=== PATIENT | male | born 1945 | race Caucasian/White ===

== ENCOUNTER 2016-02-19 18:31 | Inpatient (IN) | payer OTHER ==
[~2016-02-19] VITALS: Ht 177.8 cm; Wt 89.8 kg
--- NOTE | ~2016-02-19 | HC ---
[facility] [place] [address] CONSULTATION Name: WATTSMEGHA EVELINE Room #: 439-P [facility] IN M.R.#: [id number] Admission: 02/19/16 Attend Phys: Jacinto Marlow Discharge: 02/22/16 Date of : 43 Report #: [id number] THIS REPORT FOR: //name// CC: LIZA physician/PCP Jacinto SEO PCP DATE OF SERVICE: 02/20/2016 REASON FOR CONSULTATION: Urinary retention. HISTORY OF PRESENT ILLNESS: The patient is a 70-year-old gentleman who is known to me. He has urinary retention with an obstruction uropathy and in January, specifically 02/01/2016, underwent cystoscopy, transurethral resection of the prostate. The patient is currently admitted with complaints of obstipation and severe rectal pain. During an emergency presentation, a Bledsoe catheter was placed and there was a concern for possible urinary tract infection. The patient having expected microhematuria and pyuria following prostate resection surgery. By history, the patient states there was a small amount of urine residual within the bladder. He states prior to admission, he was not having any undue difficulties voiding. PAST MEDICAL HISTORY: Pertinent for hypertension, BPH, bipolar disorder. PAST SURGICAL HISTORY: Includes prostate resection. FAMILY HISTORY: Positive for coronary artery disease, lupus. SOCIAL HISTORY: The patient continues to be a smoker, does not use alcohol or recreational drugs. ALLERGIES: None known. PHYSICAL EXAMINATION: The patient is currently in no acute distress. His abdomen is soft, without bladder distention. Bledsoe catheter is indwelling. His urine is visibly clear. I deferred rectal examination given recent prostate surgery. LABORATORY DATA: The patient's creatinine is 1.2, BUN is 23. Electrolytes are normal, glucose is elevated to 225, white blood count is 14.3, hemoglobin and hematocrit are 11.1 and 33. MICROBIOLOGY DATA: The patient has had a urine culture submitted yesterday, it is pending blood cultures likewise. OTHER LABORATORY DATA: Urinalysis: Specific gravity is 1.020, pH is 6.5, [facility] [address] [place] [address] CONSULTATION Name: WATTSMEGHA EVELINE Room #: 439-P [facility] IN M.R.#: [id number] Admission: 02/19/16 Attend Phys: Jacinto Marlow Discharge: 02/22/16 Date of : 43 Report #: [id number] positive nitrites. There were greater than 20 red cells, 6-15 white cells. IMPRESSION: 1. Obstipation with abdominal rectal pain. 2. History of urinary retention, obstructive uropathy post prostate resection. DISCUSSION: I do not think the patient has urosepsis. Urine cultures are pending and the patient has been started on broad-spectrum antibiotics. We will remove the Bledsoe catheter tomorrow and assess postvoid residuals. I will follow during the hospital course for problems. Thank you for allowing me to see the patient in consultation. <ELECTRONICALLY SIGNED> By: Rj Copeland MD 02/22/16 1417 1354 1705 Rj Copeland MD /nt
[~2016-02-19 18:31] MED LIST: ATENOLOL 25MG T25 M1 PO; CIPRO500 MG PO; DEPAKOTE 250MG250 M1 PO; IBUPROFEN 800800 M1 PO; KEFLEX500 MG PO; LISINOPRIL20 MG PO; QUETIAPINE FUMA50 M1 PO; TRAMADOL 50 MG50 MG PO; UNK BP MED; ZANTAC 150MG T150 M1 PO; ZOCOR20 MG PO
[2016-02-19 18:33] VITALS: BP 105/58
[2016-02-19 19:58] LABS: HEMATOCRIT 43.1 % (42.0-52.0); HEMOGLOBIN 14.2 gm/dL (14.0-18.0); MCH 31.8 pg (26.0-34.0); MCHC 32.8 % (28.0-37.0); MCV 96.9 fL (80.0-100.0); PLATELET COUNT 243 thou/uL (150-400); RBC 4.45 mil/uL (4.50-6.00); WBC 23.2 thou/uL (4.0-11.0)
[2016-02-19 20:01] LABS: MANUAL DIFF YES
[2016-02-19 20:07] LABS: CALCIUM 9.6 mg/dL (8.5-10.1); CREATININE 1.6 mg/dL (0.6-1.3); POTASSIUM 4.1 mmol/L (3.5-5.1)
[2016-02-19 20:11] LABS: TOTAL BILIRUBIN 0.9 mg/dL (<0.1-1.0); TOTAL PROTEIN 7.9 g/dL (6.4-8.2)
[2016-02-19 20:32] LABS: TOTAL CELL COUNT 100
[2016-02-19 21:59] LABS: URINE BILIRUBIN 1+ (Negative); URINE BLOOD 3+ (Negative); URINE COLOR YELLOW; URINE GLUCOSE-RANDOM* NEGATIVE (Negative); URINE KETONES TRACE (Negative); URINE NITRITE POSITIVE (Negative); URINE PROTEIN (DIPSTICK) 2+ (Negative)
[2016-02-19 22:09] LABS: ICTOTEST (BILI CONFIRMATORY) Positive (Negative)
[2016-02-19 22:10] LABS: SQUAMOUS 0-3 Few /LPF (0-3)
[2016-02-19 22:11] LABS: CASTS None Seen /LPF (None Seen)
[2016-02-19 22:16] LABS: BACTERIA 1-9 Few /HPF (None Seen); CRYSTALS None Seen /LPF (None Seen); URINE RBC >20 Many /HPF (0-2); URINE WBC 6-15 Few /HPF (0-5)
[2016-02-19 23:24] VITALS: BP 112/51
[2016-02-19 23:50] VITALS: BP 130/57
[2016-02-20] VITALS (8 sets, daily range): BP systolic 90–141; BP diastolic 39–81
[2016-02-20 05:27] LABS: HEMATOCRIT 32.8 % (42.0-52.0); MCH 32.3 pg (26.0-34.0); MCHC 33.9 % (28.0-37.0); MCV 95.1 fL (80.0-100.0); RBC 3.45 mil/uL (4.50-6.00); RDW 12.8 % (10.5-14.5); WBC 14.3 thou/uL (4.0-11.0)
[2016-02-20 05:56] LABS: ALBUMIN 2.1 g/dL (3.4-5.0); CALCIUM 8.3 mg/dL (8.5-10.1); CREATININE 1.2 mg/dL (0.6-1.3); POTASSIUM 3.8 mmol/L (3.5-5.1); TOTAL BILIRUBIN 0.6 mg/dL (<0.1-1.0)
[2016-02-20 06:20] LABS: HEMOGLOBIN 11.1 gm/dL (14.0-18.0)
[2016-02-20 06:34] LABS: TOTAL PROTEIN 5.7 g/dL (6.4-8.2)
[2016-02-21 05:04] VITALS: BP 120/50
[2016-02-21 06:23] LABS: ABSOLUTE NEUTROPHILS 9.2 thou/uL (1.4-8.2); BASOPHILS 0.5 % (0.0-2.0); EOSINOPHILS 0.2 % (0.0-3.0); HEMATOCRIT 34.9 % (42.0-52.0); HEMOGLOBIN 11.5 gm/dL (14.0-18.0); LYMPHOCYTES 16.8 % (24.0-44.0); MANUAL DIFF NO; MCH 31.8 pg (26.0-34.0); MCHC 32.8 % (28.0-37.0); MCV 96.8 fL (80.0-100.0); PLATELET COUNT 207 thou/uL (150-400); POLYS 72.5 % (36.0-66.0); RBC 3.61 mil/uL (4.50-6.00); RDW 13.1 % (10.5-14.5); WBC 12.7 thou/uL (4.0-11.0)
[2016-02-21 06:45] LABS: CALCIUM 8.1 mg/dL (8.5-10.1); PHOSPHORUS 2.9 mg/dL (2.5-4.9); POTASSIUM 4.1 mmol/L (3.5-5.1)
[2016-02-21 08:00] VITALS: BP 119/51
[2016-02-21 12:00] VITALS: BP 117/48
[2016-02-21 16:00] VITALS: BP 116/56
[2016-02-21 20:50] VITALS: BP 120/55
[2016-02-22 04:03] VITALS: BP 135/64
[2016-02-22 06:13] LABS: HEMATOCRIT 35.2 % (42.0-52.0); MCH 32.2 pg (26.0-34.0); MCHC 34.1 % (28.0-37.0); MCV 94.5 fL (80.0-100.0); RBC 3.73 mil/uL (4.50-6.00); RDW 12.7 % (10.5-14.5); WBC 10.1 thou/uL (4.0-11.0)
[2016-02-22 06:32] LABS: CALCIUM 8.3 mg/dL (8.5-10.1); CREATININE 0.9 mg/dL (0.6-1.3); PHOSPHORUS 3.4 mg/dL (2.5-4.9); POTASSIUM 3.9 mmol/L (3.5-5.1)
[2016-02-22 08:46] VITALS: BP 131/56
[2016-02-22] MEDS ORDERED: AUGMENTIN 875875 MG PO (10:46)
[2016-02-22] MEDS ORDERED: SENOKOT-S1 TA1 PO (10:47)
[2016-02-22 10:56] VITALS: BP 131/56
[2016-02-22 11:53] VITALS: BP 125/55
[2016-02-22 12:43] VITALS: BP 131/56
[2016-03-02] MEDS ORDERED: ZANTAC 150MG T150 MG PO (22:48)
[2016-03-09] MEDS ORDERED: COLACE 100 MG100 MG PO (07:25)
[2016-03-09] MEDS ORDERED: MIRALAX17 GM PO (07:25)
[2016-03-09] MEDS ORDERED: MILK OF MA2400 MG/10 PO (07:25)
[2016-03-29] MEDS ORDERED: AUGMENTIN 875875 MG PO (12:22)
[2016-03-29] MEDS ORDERED: HYDROCODON-ACE1 EAC7 PO (12:22)
[2016-04-11] MEDS ORDERED: COLACE100 MG PO (19:42)
[2016-04-13] MEDS ORDERED: DUONEB 2.5-0.5 M3 ML INH (12:29)
[2016-04-13] MEDS ORDERED: HYDROCODON-ACE1 EAC7 PO (12:30)
== END 2016-02-22 13:45 | disposition home health service (06) | DRG 871 ==
LOC: ER 18:31 → EROBS 22:56 → 4S 22:56
PROVIDERS: Hospitalist; Nurse Practitioner; Physician Assistant
DX: A41.9 Sepsis, unspecified organism (principal); N17.0 Acute kidney failure with tubular necrosis; N39.0 Urinary tract infection, site not specified; E44.1 Mild protein-calorie malnutrition; N13.9 Obstructive and reflux uropathy, unspecified; N40.1 Benign prostatic hyperplasia with lower urinary tract symptoms; F17.210 Nicotine dependence, cigarettes, uncomplicated; R74.0 Nonspecific elevation of levels of transaminase and lactic acid dehydrogenase [LDH]; R33.9 Retention of urine, unspecified; F31.9 Bipolar disorder, unspecified; E78.00 Pure hypercholesterolemia, unspecified; K21.9 Gastro-esophageal reflux disease without esophagitis; M47.9 Spondylosis, unspecified; K08.409 Partial loss of teeth, unspecified cause, unspecified class; N18.9 Chronic kidney disease, unspecified; I12.9 Hypertensive chronic kidney disease with stage 1 through stage 4 chronic kidney disease, or unspecified chronic kidney disease; K59.00 Constipation, unspecified; Z84.89 Family history of other specified conditions; Z79.899 Other long term (current) drug therapy; Z82.49 Family history of ischemic heart disease and other diseases of the circulatory system; Z88.0 Allergy status to penicillin; Z68.28 Body mass index [BMI] 28.0-28.9, adult
CPT/HCPCS: 10100

== ENCOUNTER 2016-10-24 04:18 | Emergency (ER) | payer OTHER ==
[~2016-10-24] VITALS: Ht 175.3 cm; Wt 77.1 kg
[~2016-10-24 04:18] MED LIST changes: +AUGMENTIN 875875 MG PO; +COLACE 100 MG100 MG PO; +COLACE100 MG PO; +DUONEB 2.5-0.5 M3 ML INH; +HYDROCODON-ACE1 EAC7 PO; +MILK OF MA2400 MG/10 PO; +MIRALAX17 GM PO; +SENOKOT-S1 TA1 PO; +ZANTAC 150MG T150 MG PO
[2016-10-24 04:52] LABS: HEMATOCRIT 40.5 % (42.0-52.0); HEMOGLOBIN 13.8 gm/dL (14.0-18.0); MCH 30.9 pg (26.0-34.0); MCHC 34.1 g/dL (28.0-37.0); MCV 90.6 fL (80.0-100.0); PLATELET COUNT 167 thou/uL (150-400); RBC 4.47 mil/uL (4.50-6.00); RDW 15.1 % (10.5-14.5); WBC 6.1 thou/uL (4.0-11.0)
[2016-10-24 04:57] LABS: MANUAL DIFF YES
[2016-10-24 05:04] LABS: CALCIUM 9.6 mg/dL (8.5-10.1); CREATININE 0.9 mg/dL (0.7-1.3); MAGNESIUM 2.2 mg/dL (1.8-2.4); POTASSIUM 3.7 mmol/L (3.5-5.1)
[2016-10-24 05:36] LABS: ABSOLUTE NEUTROPHILS 3.8 thou/uL (1.4-8.2); ANISOCYTOSIS SLIGHT; MACROCYTES SLIGHT; TOTAL CELL COUNT 100
[2016-10-24 06:07] LABS: URINE BLOOD NEGATIVE (Negative); URINE COLOR YELLOW; URINE GLUCOSE-RANDOM* NEGATIVE (Negative); URINE KETONES 2+ (Negative); URINE LEUKOCYTES-REFLEX NEGATIVE (Negative); URINE PROTEIN (DIPSTICK) 1+ (Negative)
[2016-10-24 06:16] LABS: ICTOTEST (BILI CONFIRMATORY) Negative (Negative); URINE BILIRUBIN NEGATIVE (Negative)
[2016-10-24 06:24] LABS: CASTS None Seen /LPF (None Seen); SQUAMOUS 4-10 Moderate /LPF (0-3)
[2016-10-24 06:25] LABS: CRYSTALS None Seen /LPF (None Seen); URINE RBC None Seen /HPF (0-2); URINE WBC-REFLEX 0-5 Rare /HPF (0-5)
== END 2016-10-24 06:48 | disposition home or self-care (01) ==
LOC: ER 04:18
PROVIDERS: Emergency Medicine
DX: E86.0 Dehydration (principal); I10 Essential (primary) hypertension; E78.00 Pure hypercholesterolemia, unspecified; K21.9 Gastro-esophageal reflux disease without esophagitis; F31.9 Bipolar disorder, unspecified; M19.90 Unspecified osteoarthritis, unspecified site; F17.210 Nicotine dependence, cigarettes, uncomplicated

== ENCOUNTER 2016-11-14 06:24 | Inpatient (IN) | payer OTHER ==
[~2016-11-14] VITALS: Ht 177.8 cm; Wt 62.1 kg
--- NOTE | ~2016-11-14 | CNG ---
[facility] [place] [address] CYTO-NONGYN REPORT PROCEDURE Name: TOBY WATTS Room #: 417-I ADM IN M.R.#: [id number] Admission: 11/14/16 Date of : 43 Discharge: Report #: [id number] Path Case #: [id number] CYTOPATHOLOGY REPORT COLLECTION DATE: 11/15/2016 RECEIVED DATE: 11/16/2016 SUBMITTING PHYS: Dr. Anup Gibson OTHER PHYS: Dr. Saundra Sanchez CLINICAL HISTORY: Dizziness, lung mass, fall, hit head/Right shoulder. See also [id number]. SPECIMEN(S) RECEIVED: A.Fluid, RUL lung mass * * * * * * * * * * * * FINAL DIAGNOSIS: A. Fluid RUL lung mass: - No malignant cells identified. - No viable epithelial cells present - Acute inflammatory cells present and necroinflammatory debris. PATHOLOGIST: Ania Blanco M.D. REPORT ELECTRONICALLY SIGNED BY: Ania Blanco M.D. DATE/TIME: 11/19/2016 15:18 * * * * * * * * * * * * GROSS PATHOLOGY: A. Fluid, RUL lung mass: The specimen is submitted unfixed, labeled "Toby Watts". Received by the Cytology Department is one mL of pink fluid. One ThinPrep slide and a formalin fixed cell block were prepared. (clt 11.16.2016) GAME FARM HELPER(S): GALI Aleman([facility]) INITIAL CPT CODE(S): A; 33205, 34884 Professional services performed by [facility] at [facility] [address] [facility] , [address] Technical services performed by [facility] at [address] [place] [address]., [address], [place] [address]. [facility] [address] [place] [address], [address] [facility] [address] [address] CYTO-NONGYN REPORT PROCEDURE Name: TOBY WATTS Room #: 417-I ADM IN M.R.#: [id number] Admission: 11/14/16 Date of : 43 Discharge: Report #: [id number] Path Case #: [id number] [place] [address] PHONE: [phone] DIRECTOR: Wang Morton M.D. * * * END OF REPORT * * *
--- NOTE | ~2016-11-14 | S ---
[facility] [place] [address] SURGICAL PATH RPT PROCEDURE Name: MEGHA WATTS Room #: 417-I ADM IN M.R.#: [id number] Admission: 11/14/16 Date of : 43 Discharge: Report #: [id number] Path Case #: [id number] PATHOLOGY REPORT COLLECTION DATE: 11/15/2016 RECEIVED DATE: 11/15/2016 SUBMITTING PHYS: Dr. Anup Gibson OTHER PHYS: SPECIMEN(S) RECEIVED: A.RUL lung mass * * * * * * * * * * * * FINAL DIAGNOSIS: "RUL lung mass," image-guided needle biopsy: - Essentially obliterated alveolated lung tissue by acute and chronic inflammation, organizing fibroblastic proliferation, focal fresh hemorrhage and necrosis. (see comment) COMMENT: Properly controlled immunohistochemical stains are performed: CAM5.2 (A1): Stains scant residual alveolar lining cells. AE1/AE3 (A2): Stains scant residual alveolar lining cells CK-MONET (A3): Rare single cells reactive No epithelial malignancy is identified. Histologic considerations include organizing pneumonia, peripherally sampled abscess and/or obstructive pneumonia pattern of inflammation. Clinical and radiographic correlation is required. The H and E stained slides are co-reviewed with Dr. Tico Franks. Please see also the fine needle aspirate ([id number]). (CLW:; 11/19/2016) PATHOLOGIST: Elsa Park M.D. REPORT ELECTRONICALLY SIGNED BY: Elsa Park M.D. DATE/TIME: 11/19/2016 18:27 * * * * * * * * * * * * GROSS PATHOLOGY: Received in formalin labeled "SLAVA Chavarria lung mass," are 3 distinct needle cores of no soft tissue ranging from 0.2 to 0.7 cm in length, which are submitted entirely in cassette A1 through A3. (TSD; 11/15/2016) CLINICAL HISTORY: Dizziness, lung mass [facility] [address] [place] [address] SURGICAL PATH RPT PROCEDURE Name: MEGHA WATTS Room #: 417-I ADM IN M.R.#: [id number] Admission: 11/14/16 Date of : 43 Discharge: Report #: [id number] Path Case #: [id number] INITIAL CPT CODE(S): A; 21205, 65411, 31335, 59047 Professional services performed by [facility] at [address], [place] [address] Technical services performed by [facility] at [address] [place] [address], [facility] [address] [address]. [facility] [address] [place] [address] PHONE: [phone] DIRECTOR: Wang Morton M.D. * * * END OF REPORT * * *
--- NOTE | ~2016-11-14 | EKG ---
[place] [address] [place] [address] ELECTROCARDIOGRAM REPORT Name: MEGHA WATTS [facility] [id number] Admission: 11/14/16 Attend Phys: Discharge: Date of : 43 Report #: [id number] THIS REPORT FOR: //name// [facility] ED Test Date: 2016-11-14 Test Time: 06:42:54 Pat Name: MEGHA WATTS Department: Room: Gender: M Host/Hostess: : 1945 Requested By: Saundra Sanchez Order Number: [id number] MD: Prakash Montes Measurements Intervals [place] Rate: 74 P: 41 OR: 184 QRS: 20 QRSD: 97 T: 25 QT: 392 QTc: 435 Interpretive Statements Sinus rhythm Probable left atrial enlargement Compared to ECG 04/11/2016 20:51:38 Atrial premature complex(es) no longer present Electronically Signed On 11-14-2016 8:09:56 CDT by Prakash Montes [email or web address] <ELECTRONICALLY SIGNED> By: Prakash Montes MD, [facility] 11/14/16 0809 0642 0642 Prakash Montes MD, FACC /EPI
--- NOTE | ~2016-11-14 | HC ---
[facility] [place] [address] CONSULTATION Name: MEGHA WATTS Room #: 430-P ADM IN M.R.#: [id number] Admission: 11/14/16 Attend Phys: Anup Gibson DO Discharge: Date of : 43 Report #: [id number] THIS REPORT FOR: //name// CC: FAM unknown Anup Marie MD DATE OF SERVICE: 11/14/2016 REASON FOR CONSULTATION: Right lung mass. 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 Had fallen at home. On a CT chest, he was found to have a 2.7 x 3.4 cm right upper lobe mass. No adenopathy was found. That may be slightly cavitary. REVIEW OF SYSTEMS: The patient denies headache, fevers, chills, cough worse than usual. Does have the unintentional weight loss. He states he has been eating normally. No swallowing troubles. He did have diarrhea now that is more recent than constipation. Has also had some urinary troubles in the past. He has not had any new ankle swelling lately. PAST MEDICAL HISTORY: Notable for history of I think BPH. Had a TUR cystoscopy by Dr. Conor Copeland in the past. Also has a history of hypertension and hyperlipidemia, history of pancreatitis in the past. Also reported bipolar disorder. GERD and wisdom teeth removal in the past. SOCIAL HISTORY: Not currently working. Lives in an apartment complex, not too far from the hospital. Smoker for a large number of years. Quit drinking alcohol about [address] FAMILY HISTORY: No one he mentions that he knows with cancer. There was some questions about whether dad might have had tuberculosis. He does have children. MEDICATIONS: Current medications include nicotine 14 mg daily patch, IV fluids, hydrocodone p.r.n., zolpidem p.r.n., MiraLax p.r.n., nitroglycerin tablets p.r.n., Zofran p.r.n. Medications when he was last discharged from the hospital on April 2016 include lisinopril 20, atenolol 25, quetiapine 50 mg extended release daily, divalproex 250 mg 3 tabs at 9:00 a.m., ranitidine 150 twice daily, docusate 100 daily. PHYSICAL EXAMINATION: GENERAL: The patient appears his stated age. [place] [address] CONSULTATION Name: MEGHA WATTS Room #: 430-P [facility] IN M.R.#: [id number] Admission: 11/14/16 Attend Phys: Anup Gibson DO Discharge: Date of : 43 Report #: [id number] VITAL SIGNS: Height is 5 feet 10 inches or 177.8 cm. Weight is 136.8 pounds or 62.1 kilograms. Blood pressure in the left arm is 121/72, O2 sat 98%, respirations 16, pulse is 59, temperature 98.6. MOOD: The patient is alert and pleasant. NEUROLOGIC: Moving all extremities. Face seems symmetrical. LYMPHATICS: No enlarged lymph nodes in the supraclavicular or cervical region. ABDOMEN: Flat, without definite organomegaly. EXTREMITIES: Without clubbing, cyanosis or edema. LABORATORY REVIEW: Shows a BUN 15, creatinine of 0.7. AST in the past in April was 61. Albumin had been 2.3, back in April. We will likely repeat liver functions while the patient is here. Coags back in April and March were normal. The patient had serum protein electrophoresis back in March that showed no M-spike. He also had a urinary electrophoresis back then that did not show a monoclonal spike. White count of 6.6, hemoglobin 12.8, MCV 91.1, platelets 150. Differential, without acute changes. PSA in February 2016 was 0.4. C. diff in February was negative. UA had 1+ ketones, no red cells. IMAGING DATA: Other imaging studies here revealed the CT chest with the right upper lobe lung mass that may be cavitary or pneumocele nearby. No mention of any lymphadenopathy. The patient also had a CT head that did show atrophic changes without acute processes. CT abdomen and pelvis done back in February showed multiple areas of opacification in the left lung, suggesting pneumonitis at that time. Liver had hepatic steatosis. Spleen was unremarkable, measuring less than 10 cm. Gallbladder was unremarkable, pancreas unremarkable. No ductal dilatation. Adrenals normal in size. Retroperitoneum, no lymphadenopathy. Stomach and small bowel, small sliding type hiatal hernia. Appendix normal. Large amount of stool. Prostate, seminal vesicles unremarkable. Osseous structures reveal posterior lateral right 9th rib changes, suggesting old healed fracture. DISCUSSION: Discussed with patient that I am asked to see him because of the right upper lobe mass. That could be malignancy, could be infectious, maybe scar tissue. I told him that it may take 2-4 working days to get the pathology back and if it is negative, may need to repeat until we could find something to explain this lesion. ASSESSMENT AND PLAN: 1. A 3.4 cm right upper lobe mass. Await CT biopsy results. If malignancy, we will probably need to consider PET scan and see if the person may be a surgical candidate. At this time, it does not appear to have other lymphadenopathy to suggest localized disease. Note the patient has not had a colonoscopy for sometime. 2. A 100 pound weight loss, unclear etiology. 3. Hypertension. Meds per others. 4. Bipolar affective disorder. Meds per others. [facility] [address] [place] [address] CONSULTATION Name: STEFANIEMEGHA Room #: 430-P ADM IN M.R.#: [id number] Admission: 11/14/16 Attend Phys: Anup Gibson DO Discharge: Date of : 43 Report #: [id number] 5. Hyperlipidemia. Meds per others. 6. Weakness. PT, OT will be seeing the patient. <ELECTRONICALLY SIGNED> By: Atul Mcconnell MD 11/15/16 1901 0843 1010 Atul Mcconnell MD /nt
--- NOTE | ~2016-11-14 | HC ---
[facility] [place] [address] CONSULTATION Name: MEGHA WATTS Room #: 417-I ADM IN M.R.#: [id number] Admission: 11/14/16 Attend Phys: Anup Gibson DO Discharge: Date of : 43 Report #: [id number] THIS REPORT FOR: //name// CC: FAM unknown Anup Gibson DATE OF SERVICE: 11/14/2016 REFERRAL PHYSICIAN: Anup Gibson DO HISTORY OF PRESENT ILLNESS: The patient is a 71-year-old white male who presents to the emergency room with falls. Chest x-ray and chest CT shows lung mass. A pulmonary consultation was requested. The patient states that he has had trouble with falls. This morning while he was going to the bathroom using his walker, he slipped and fell and was unable to get up. 911 was called. Chest x-ray and chest CT shows lung mass. Chest CT and chest x-ray shows abnormalities, which will be described below. The patient does note that he has lost some weight, apparently lost about 100 pounds unintentionally. Otherwise, denies any fever, night sweats or chills, chest pain, or hemoptysis. Remotely, his father had tuberculosis, but does not recall being exposed to TB in the past. 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 PRIMARY CARE PHYSICIAN: Erika Kasper MD PAST SURGICAL HISTORY: Notable for knee surgery in 1996. ALLERGIES: None to medications. HOME MEDICATIONS: Include DuoNebs, hydrocodone, quetiapine fumarate ER 25 mg once a day, Zantac, Motrin, Zestril, and Depakote. FAMILY HISTORY: Unknown. SOCIAL HISTORY: He continues to smoke less than a pack a day. Denies any alcohol use. He states that he has family, but lives alone by himself. REVIEW OF SYSTEMS: As mentioned above, otherwise 10-point system review negative. [facility] [address] [place] [address] CONSULTATION Name: MEGHA WATTS Room #: 417-I [facility] IN ..#: [id number] Admission: 11/14/16 Attend Phys: Anup Gibson DO Discharge: Date of : 43 Report #: [id number] PHYSICAL EXAMINATION: GENERAL: He is awake, alert, in no apparent distress. VITAL SIGNS: Temperature is 98 degrees Fahrenheit, pulse is 60, respiratory rate is 18, blood pressure 124/70 mmHg, and saturation 98%. HEENT: Normocephalic, atraumatic. NECK: Supple without any lymphadenopathy or thyromegaly. CHEST: Breath sounds are clear without any rales or wheezes. CARDIOVASCULAR: Normal S1, S2. There are no murmurs or gallop. There is no JVD. There is no carotid bruit. Pulses are 2+/4+ bilaterally. ABDOMEN: Soft, nontender, no organomegaly or masses felt. GENITOURINARY: Deferred. RECTAL: Deferred. EXTREMITIES: There is no edema, cyanosis or clubbing. LABORATORY DATA: Chest x-ray shows density in the right upper lobe. CT chest shows cavitary lung mass in the right upper lobe abutting the chest wall. There is a smaller spiculated nodule seen in the left apex, small left-sided pleural effusion is seen along with mild pleural base scarring in the left lower lobe, pleural base fibrosis. Of note, there is an associated infiltrate surrounding the right upper lobe cavitary mass. There is no mediastinal adenopathy. Upper abdomen was grossly unremarkable. The right upper lobe mass measured 2.7 x 3.4 cm in diameter. Last chest x-ray in this institution for April 2016 showed clear lung guzman. CT head was unremarkable other than atrophic changes. CT spine shows [id number] cervical spine degenerative changes. Electrolytes are normal. WBC 6600, hemoglobin 12.8, platelets are normal. No bandemia. Albumin pending. IMPRESSION: 1. Cavitary right upper lobe lung mass in this 71-year-old white male. He had a recent weight loss. A small spiculated nodule seen n the left apex. The patient has smoked most of his life. He denies any febrile illness, night sweats or chills, chronic cough or hemoptysis. Bronchogenic carcinoma is likely. Remotely, he states that his father had tuberculosis, but he has never been exposed. The patient's chest x-ray from April 2016, was clear. I do not think this is tuberculosis. 2. Weight loss ? 100 pounds over the last year or so. 3. Recent falls and weakness. 4. Bipolar disorder. 5. Tobacco abuse. RECOMMENDATION: Based on the CT chest findings, CT needle biopsy will be the diagnostic procedure choice. Risk for pneumothorax will be low. We would also recommend sending for AFB smear given his ? exposure to TB. Again, I do not think this is likely tuberculosis. [facility] [address] [place] [address] CONSULTATION Name: MEGHA WATTS Room #: 417-I ADM IN M.R.#: [id number] Admission: 11/14/16 Attend Phys: Anup Gibson DO Discharge: Date of : 43 Report #: [id number] Once biopsy report confirms neoplasm, he will need a PET scan imaging. A baseline pulmonary function test will be helpful. Smoke cessation will be recommended. Nutritional support will need to be addressed. Agree with possible plans for rehabilitation given generalized debility and weakness along with recent falls. Thank you for this consultation. <ELECTRONICALLY SIGNED> By: Jason Marie MD 11/19/16 1920 1056 1255 Jason Marie MD /nt
[2016-11-14 06:25] VITALS: BP 116/60
[2016-11-14] MEDS ORDERED: IBUPROFEN 800800 M1 PO (06:38)
[2016-11-14 07:02] LABS: HEMATOCRIT 38.2 % (42.0-52.0); HEMOGLOBIN 12.8 gm/dL (14.0-18.0); MCH 30.6 pg (26.0-34.0); MCHC 33.6 g/dL (28.0-37.0); MCV 91.1 fL (80.0-100.0); PLATELET COUNT 150 thou/uL (150-400); WBC 6.6 thou/uL (4.0-11.0)
[2016-11-14 07:15] LABS: MANUAL DIFF YES
[2016-11-14 07:27] LABS: ANION GAP 12 mmol/L (7-16); BUN 15 mg/dL (7-18); CALCIUM 9.4 mg/dL (8.5-10.1); CHLORIDE 101 mmol/L (98-107); CO2 24 mmol/L (21-32); CREATININE 0.7 mg/dL (0.7-1.3); GLUCOSE 129 mg/dL (74-106); POTASSIUM 3.7 mmol/L (3.5-5.1); SODIUM 137 mmol/L (136-145)
[2016-11-14 07:30] LABS: URINE BILIRUBIN NEGATIVE (Negative); URINE BLOOD NEGATIVE (Negative); URINE COLOR YELLOW; URINE GLUCOSE-RANDOM* NEGATIVE (Negative); URINE KETONES 1+ (Negative); URINE NITRITE NEGATIVE (Negative); URINE PROTEIN (DIPSTICK) NEGATIVE (Negative)
[2016-11-14 07:36] LABS: TROPONIN-I < 0.04 ng/mL (<0.04-0.07)
[2016-11-14 07:48] LABS: ABSOLUTE NEUTROPHILS 5.3 thou/uL (1.4-8.2); ANISOCYTOSIS SLIGHT; TOTAL CELL COUNT 100
[2016-11-14 09:16] VITALS: BP 126/61
[2016-11-14 09:37] VITALS: BP 113/61
[2016-11-14 10:30] VITALS: BP 107/57
[2016-11-14 17:20] VITALS: BP 137/75
[2016-11-14 20:00] VITALS: BP 121/69
[2016-11-15] VITALS (15 sets, daily range): BP systolic 97–141; BP diastolic 52–88
[2016-11-15 11:53] LABS: PROTIME 9.7 Seconds (9.3-11.4)
[2016-11-16 02:38] VITALS: BP 129/78
[2016-11-16 04:09] VITALS: BP 188/79
[2016-11-16 08:43] VITALS: BP 130/76
[2016-11-16 15:05] VITALS: BP 111/71
[2016-11-16 19:26] VITALS: BP 119/72
[2016-11-17 03:05] VITALS: BP 122/78
[2016-11-17 06:03] LABS: HEMATOCRIT 37.4 % (42.0-52.0); HEMOGLOBIN 12.4 gm/dL (14.0-18.0); MCH 30.4 pg (26.0-34.0); MCHC 33.2 g/dL (28.0-37.0); MCV 91.6 fL (80.0-100.0); PLATELET COUNT 172 thou/uL (150-400); RBC 4.08 mil/uL (4.50-6.00); RDW 14.5 % (10.5-14.5); WBC 7.3 thou/uL (4.0-11.0)
[2016-11-17 06:07] LABS: MANUAL DIFF YES
[2016-11-17 06:16] LABS: CALCIUM 8.8 mg/dL (8.5-10.1); CREATININE 0.7 mg/dL (0.7-1.3); POTASSIUM 4.1 mmol/L (3.5-5.1)
[2016-11-17 07:38] VITALS: BP 101/60
[2016-11-17 08:22] LABS: ABSOLUTE NEUTROPHILS 3.8 thou/uL (1.4-8.2); TOTAL CELL COUNT 100
[2016-11-17 08:23] LABS: ANISOCYTOSIS SLIGHT
[2016-11-17 16:32] VITALS: BP 109/69
[2016-11-17 19:23] VITALS: BP 98/63
[2016-11-18 06:41] LABS: HEMATOCRIT 35.8 % (42.0-52.0); HEMOGLOBIN 12.1 gm/dL (14.0-18.0); MCH 30.5 pg (26.0-34.0); MCHC 33.8 g/dL (28.0-37.0); MCV 90.3 fL (80.0-100.0); PLATELET COUNT 200 thou/uL (150-400); RBC 3.97 mil/uL (4.50-6.00); RDW 14.6 % (10.5-14.5); WBC 8.2 thou/uL (4.0-11.0)
[2016-11-18 06:43] LABS: MANUAL DIFF YES
[2016-11-18 06:54] LABS: CALCIUM 8.9 mg/dL (8.5-10.1); CREATININE 0.7 mg/dL (0.7-1.3); POTASSIUM 4.3 mmol/L (3.5-5.1)
[2016-11-18 07:05] VITALS: BP 106/54
[2016-11-18 08:49] LABS: TOTAL BILIRUBIN 0.2 mg/dL (<0.1-1.0); TOTAL PROTEIN 6.4 g/dL (6.4-8.2)
[2016-11-18 09:38] LABS: ABSOLUTE NEUTROPHILS 4.7 thou/uL (1.4-8.2); TOTAL CELL COUNT 100
[2016-11-18 09:39] LABS: ANISOCYTOSIS SLIGHT
[2016-11-18 16:56] VITALS: BP 91/57
[2016-11-18 20:00] VITALS: BP 103/61
[2016-11-19 04:30] VITALS: BP 163/87
[2016-11-19 06:17] LABS: HEMATOCRIT 35.4 % (42.0-52.0); MCH 30.8 pg (26.0-34.0); MCHC 33.9 g/dL (28.0-37.0); MCV 90.8 fL (80.0-100.0); PLATELET COUNT 240 thou/uL (150-400); RBC 3.89 mil/uL (4.50-6.00); RDW 14.6 % (10.5-14.5)
[2016-11-19 06:25] LABS: MANUAL DIFF YES
[2016-11-19 06:31] LABS: CALCIUM 8.9 mg/dL (8.5-10.1); CREATININE 0.8 mg/dL (0.7-1.3); POTASSIUM 4.1 mmol/L (3.5-5.1)
[2016-11-19 07:36] LABS: ABSOLUTE NEUTROPHILS 4.3 thou/uL (1.4-8.2); TOTAL CELL COUNT 100
[2016-11-19 07:41] LABS: ANISOCYTOSIS 1+
[2016-11-19 08:24] LABS: NIL (NEGATIVE) CONTROL SPOT CT 0; PANEL A SPOT CT 0; PANEL B SPOT CT 1; POSITIVE CONTROL SPOT COUNT > 20; T-SPOT.TB Negative
[2016-11-19 08:39] VITALS: BP 110/64
[2016-11-19 20:00] VITALS: BP 91/54
[2016-11-20 05:34] VITALS: BP 84/50
[2016-11-20 07:32] VITALS: BP 114/64
[2016-11-20] MEDS ORDERED: NICOTINE TRANSD14 M1 TRANSDERM (15:37)
[2016-11-20] MEDS ORDERED: HYDROCODON-ACE1 EAC7 PO (15:38)
[2016-11-20] MEDS ORDERED: AUGMENTIN 875-1 EACH PO (15:39)
== END 2016-11-20 18:54 | DRG 193 ==
LOC: ER 06:24 → 4E 09:39 → EROBS 09:45 → 4E 09:47
PROVIDERS: Emergency Medicine; Family Medicine; Internal Medicine Pulmonary Disease
PROC: 0BBC3ZX Excision of Right Upper Lung Lobe, Percutaneous Approach, Diagnostic (ICD-10-PCS; principal; 2016-11-15)
DX: J18.9 Pneumonia, unspecified organism (principal); E43 Unspecified severe protein-calorie malnutrition; Z68.1 Body mass index [BMI] 19.9 or less, adult; R91.8 Other nonspecific abnormal finding of lung field; A15.0 Tuberculosis of lung; R19.7 Diarrhea, unspecified; S09.90XA Unspecified injury of head, initial encounter; W01.0XXA Fall on same level from slipping, tripping and stumbling without subsequent striking against object, initial encounter; I10 Essential (primary) hypertension; E78.00 Pure hypercholesterolemia, unspecified; K21.9 Gastro-esophageal reflux disease without esophagitis; F31.9 Bipolar disorder, unspecified; M46.90 Unspecified inflammatory spondylopathy, site unspecified; F17.210 Nicotine dependence, cigarettes, uncomplicated; E78.5 Hyperlipidemia, unspecified; N40.0 Benign prostatic hyperplasia without lower urinary tract symptoms; Y93.01 Activity, walking, marching and hiking; Z83.6 Family history of other diseases of the respiratory system; Y92.098 Other place in other non-institutional residence as the place of occurrence of the external cause; Y99.8 Other external cause status; Z28.21 Immunization not carried out because of patient refusal
CPT/HCPCS: 10183

== ENCOUNTER 2016-11-20 13:41 | Inpatient (IN) | payer OTHER ==
[~2016-11-20] VITALS: Ht 177.8 cm; Wt 65.3 kg
--- NOTE | ~2016-11-20 | PLAN ---
[facility] [place] [address] REHAB UNIT PLAN OF CARE Name: MEGHA WATTS Room #: 512-P ADM IN M.R.#: [id number] Admission: 11/20/16 Attend Phys: Geoffrey Taylor MD Discharge: Date of : 43 Report #: [id number] THIS REPORT FOR: //name// CC: Geoffrey Taylor [facility] unknown DATE OF SERVICE: 11/22/2016 SUBJECTIVE: The patient is seen back today in followup. No new complaints. No focal calf swelling. He is min assist with bed mobility and is needing mod assist, ambulating about 18 feet. In occupational therapy, upper body dressing is min assist with lower body dressing is max assist. In speech therapy, he has mild comprehensive deficits. ASSESSMENT: 1. Medical complexity with generalized debilitation. 2. Right upper lobe cavitary mass with negative needle biopsy, needs followup CT in 4-8 weeks. 3. Hypertension. 4. Bipolar disorder. 5. Hypercholesterolemia. 6. Tobacco abuse. 7. Degenerative arthritis of the spine. 8. Weight loss with last albumin at 2.0. PLAN: The overall plan of care is based on the preadmission screen, post-admission physician evaluation and information garnered from therapy assessments. 1. Estimated length of stay is probably around 2 weeks and potentially longer as warranted. 2. Medical prognosis is reasonably good. 3. Anticipated interventions includes the interdisciplinary acute inpatient rehabilitation program with PT, OT and speech, rehabilitation nursing assisting regarding medication management, skin care prophylaxis, bowel and bladder issues and nursing education. We will have the senior wind energy consultant physician's continue to follow. The interdisciplinary rehab team will be involved and maximizing his functional independence. 4. Anticipated functional outcomes would be for the patient to become modified independent with transfers, mobility and ADLs as well as his cognition, so that he can return back to the home setting. Goal would be for him to be independent at least at the walker level. 5. Discharge destination would be back to the home setting where he does live alone in an apartment. 6. Expected therapy by discipline includes PT and OT and speech 1 hour per day, each five days a week throughout the duration of the acute inpatient rehabilitation stay. <ELECTRONICALLY SIGNED> By: Geoffrey Taylor MD 11/27/16 1116 0930 0213 Geoffrey Taylor MD /[facility]
--- NOTE | ~2016-11-20 | HC ---
[facility] [place] [address] [address] CONSULTATION Name: MEGHA WATTS Room #: 512-P [facility] IN M.R.#: [id number] Admission: 11/20/16 Attend Phys: Geoffrey Taylor MD Discharge: Date of : 43 Report #: [id number] THIS REPORT FOR: //name// CC: Geoffrey Taylor [facility] unknown DATE OF SERVICE: 11/25/2016 ATTENDING PHYSICIAN: Geoffrey Taylor MD HAND WOVEN CARPET AND RUG MENDER: Manolo Parks, PhD CLINICAL PRESENTATION: The patient is a 71-year-old male admitted to the [facility] Rehabilitation Unit for a comprehensive inpatient rehabilitation program to improve functional mobility and activities of daily living and self-care secondary to deficits from medical complexity and generalized debility. The patient was found down at his apartment by a neighbor. However, the patient initially said he was found down by his brother. Inconsistency is noted in immediate memory regarding his initial hospitalization and the events preceding his hospitalization. He reported having hit his head on the wall of his bathroom resulting in concussion prior. The patient reports having had a history of several falls at his home recently. It should be noted that his time orientation in regard to the falls and the time of which he hit his head was inconsistently reported during the interview in comparison to medical records. Neuropsychological consultation was requested to provide assistance in the assessment of cognitive and emotional status and to provide recommendations and services. Prior to this most recent admission, the patient was living independently in an apartment, however, he stated that his brother is intermittently available to check up on him. He is with 7 children. He had 6 siblings. 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 TECHNIQUES UTILIZED: Clinical interview, review of medical records, staff consultation and behavioral observation, mini-mental status exam 2 standard version, calibrated ideational fluency assessment (verbal fluency) and clock drawing. EXAMINATION FINDINGS: The patient was alert and cooperative with the assessment. He was vague in his description of events preceding his hospitalization. The patient presents with intermittent amnesia surrounding his admission. He is lacking insight into his deficits and does not report [facility] [address] [place] [address] CONSULTATION Name: STEFANIEMEGHA EVELINE Room #: 512-P [facility] IN M.R.#: [id number] Admission: 11/20/16 Attend Phys: Geoffrey Taylor MD Discharge: Date of : 43 Report #: [id number] difficulty with cognition, word finding or attention/concentration. Additionally, he does not report subjective anxiety or depression, sleep disturbance or variability in energy level. His primary symptom is in regard to appetite. His performance on the mini-mental status exam 2 was within normal limits. The brief MMSE 2 brief version was 16 of 16 and MMSE 2 standard version was 29 of 30. The patient had difficulty with visual spatial construction. Additionally, his performance in verbal fluency assessment suggests severe impairment with letter, category and total fluency. Letter fluency was a T score 27, scale standard score of 4. Category fluency was scale score of 1, T score of 19. Total verbal fluency was a scale standard score of 1 and a T of 19. The patient was unable to accurately draw a clock and set the hands at a designated time. Impairment was noted with number of placement in that he was unable to accurately put the numbers in the clock and was unable to draw a diagram indicating the placement of the hands. The patient is presenting with impairment in thought organization, planning and problem solving which are assessed through category and letter fluency. Diminished visual spatial construction is noted. He also shows executive dysfunction in clock drawing and poor insight into his deficits. DIAGNOSTIC IMPRESSION: Neurocognitive disorder, unspecified, with poor insight - extent to be determined, likely moderate level of severity. Bipolar Disorder, unspecified Alcohol use disorder - persistent abstinence. RECOMMENDATIONS: The patient will benefit from a structured and supervised treatment environment. Encouragment to take initiative in self care and following his schedule. At discharge he is likely to require assistance in the management of his medication and nutrition. Family conference will be necessary to assist in planning and problem solving regarding the extent of his deficits and his need for assistance. A follow up neuropsychological evaluation is indicated to clarify deficits after discharge. Thank you very much for allowing me to provide the consultation on this patient. <ELECTRONICALLY SIGNED> By: Manolo Parks, PhD 12/02/16 1339 1334 1847 Manolo Parks, PhD /nt
--- NOTE | ~2016-11-20 | H ---
[facility] [place] [address] HISTORY AND PHYSICAL Name: MEGHA WATTS Room #: 512-P ADM IN M.R.#: [id number] Admission: 11/20/16 Attend Phys: Geoffrey Taylor MD Discharge: Date of : 43 Report #: [id number] THIS REPORT FOR: //name// CC: Geoffrey Taylor [facility] unknown DATE OF SERVICE: 11/20/2016 HISTORY AND PHYSICAL/POST-ADMISSION PHYSICIAN EVALUATION HISTORY OF PRESENT ILLNESS: The patient is a 71-year-old white male with a prior history of hypertension, hyperlipidemia, tobacco abuse, admitted after a fall. He was up using his walker when he had a mechanical injury, he was unable to get up. He did hit his head on the bathroom wall, but denied any loss of consciousness. Complained of left shoulder being twisted. Workup revealed the right upper lung cavitary mass per chest x-ray and with further history was also noted to have over 100 pounds weight loss recorded. X-rays of the shoulder were negative and CT of the head was negative. The patient has a history of tobacco abuse, smoking most of his life. Pulmonary recommended CT needle biopsy. This was obtained and was negative for malignancy. He was thought to have pneumonia. Antibiotics were given. Thought to be a presumed abscess. He is have a followup chest CT in 4-6 weeks. Hematology/Oncology did see him and agreed with repeat imaging in 4-8 weeks. Dietary was involved with recommendations regarding his weight loss. He is noted to be debilitated with medical complexity as noted above and is now been admitted for acute in-hospital inpatient rehabilitation. PAST MEDICAL HISTORY: Does include premorbid bipolar disorder, was noted to have hypertension, hyperlipidemia, tobacco abuse, arthritis of the spine and GERD. MEDICATIONS: Please see the full medication listing. ALLERGIES: No known drug allergies. HABITS: Tobacco abuse as noted above, no history of alcohol abuse. SOCIAL HISTORY: He is noted to live alone in an apartment. He was independent with gait and ADLs, but used a walker outside his apartment to assist with ambulation. He also has a manual wheelchair. REVIEW OF SYSTEMS: No current complaints of chest pain, shortness of breath, abdominal discomfort. No complaints of extremity pain complaints. He does note overall generalized weakness. Did not complain of any headache or bowel or bladder changes. [address] [address] HISTORY AND PHYSICAL Name: MEGHA WATTS Room #: 512-P [facility] IN M.R.#: [id number] Admission: 11/20/16 Attend Phys: Geoffrey Taylor MD Discharge: Date of : 43 Report #: [id number] PHYSICAL EXAMINATION: GENERAL: A 71-year-old white male in no obvious distress. VITAL SIGNS: Last recorded temperature 97.5, pulse 72, respirations 20, blood pressure 118/64. He is alert. HEENT: Appeared to be benign. NEUROLOGIC: Cranial nerves are grossly intact. Facies are symmetric. He has functional range of motion of both upper extremities with strength grade 4-/5. DTRs are trace to 1. CHEST: He may have some mild decreased breath sounds, right upper lung area. Otherwise, everything sounds clear. CARDIOVASCULAR: Regular rate and rhythm. ABDOMEN: Soft, nontender. GENITOURINARY AND RECTAL: Deferred. EXTREMITIES: He has functional range of motion of both lower extremities. No focal calf swelling, no significant distal lower extremity edema. Strength is grade 4-/5. DTRs are decreased. He is needing assistance with basic functional mobility skills. Transfers are mod assist. ASSESSMENT: A 71-year-old white male with the following problem list: 1. Medical complexity with generalized debilitation. 2. Right upper lobe cavitary mass with negative needle biopsy, needs followup CT in 4-8 weeks. 3. Hypertension. 4. Bipolar disorder. 5. Hypercholesterolemia. 6. Tobacco abuse. 7. Degenerative arthritis of the spine. 8. Weight loss, last albumin was 2.0. We will have Dietary continue to follow. PLAN: The patient is admitted for acute in-hospital inpatient rehabilitation. From a post-admission physician evaluation perspective, there are no relevant changes since the preadmission screening. Please see the above review of prior and current medical and functional conditions and comorbidities. Please see the patient's previous and current functional status. As far as risk of complications, the patient does have the multiple medical comorbidities as noted above. Initial plan of care involves the interdisciplinary acute inpatient rehabilitation program with the goal of maximizing the patient's functional independence, so that he can hopefully return back to his prior living situation. Prognosis is reasonably good with estimated length of stay probably at least 7-10 days and likely longer to try to get him to the point where he can get back home. Potential barriers would include his multiple medical comorbidities and decreased functional status. The patient meets diagnostic criteria for an acute in-hospital inpatient rehabilitation stay. He meets medical necessity criteria and we will have the microsoft bi consultant physicians continue to follow while he is on rehabilitation. He does [facility] [address] [place] [address] HISTORY AND PHYSICAL Name: MEGHA WATTS Room #: 512-P ADM IN M.R.#: [id number] Admission: 11/20/16 Attend Phys: Geoffrey Taylor MD Discharge: Date of : 43 Report #: [id number] have the tolerance for therapies and has appropriate discharge goals back to the home setting. <ELECTRONICALLY SIGNED> By: Geoffrey Taylor MD 11/27/16 1116 0809 1435 Geoffrey Taylor MD /PMT
[2016-11-20] MEDS ORDERED: NICOTINE TRANSD14 M1 TRANSDERM (15:37)
[2016-11-20] MEDS ORDERED: HYDROCODON-ACE1 EAC7 PO (15:38)
[2016-11-20] MEDS ORDERED: AUGMENTIN 875-1 EACH PO (15:39)
[2016-11-20 19:30] VITALS: BP 118/64
[2016-11-21 04:29] LABS: HEMATOCRIT 32.8 % (42.0-52.0); HEMOGLOBIN 11.2 gm/dL (14.0-18.0); MCH 30.9 pg (26.0-34.0); MCV 90.9 fL (80.0-100.0); RBC 3.61 mil/uL (4.50-6.00); RDW 14.5 % (10.5-14.5); WBC 9.9 thou/uL (4.0-11.0)
[2016-11-21 04:39] LABS: CREATININE 0.7 mg/dL (0.7-1.3); POTASSIUM 4.3 mmol/L (3.5-5.1)
[2016-11-21 08:30] VITALS: BP 102/46
[2016-11-21 20:30] VITALS: BP 111/66
[2016-11-22 21:42] VITALS: BP 130/64
[2016-11-23 04:22] LABS: HEMATOCRIT 36.1 % (42.0-52.0); HEMOGLOBIN 12.1 gm/dL (14.0-18.0); MCH 30.8 pg (26.0-34.0); MCHC 33.6 g/dL (28.0-37.0); MCV 91.4 fL (80.0-100.0); RBC 3.95 mil/uL (4.50-6.00); RDW 14.6 % (10.5-14.5); WBC 12.5 thou/uL (4.0-11.0)
[2016-11-23 04:34] LABS: CALCIUM 9.5 mg/dL (8.5-10.1); CREATININE 0.7 mg/dL (0.7-1.3); MAGNESIUM 2.1 mg/dL (1.8-2.4); POTASSIUM 4.6 mmol/L (3.5-5.1)
[2016-11-23 04:41] LABS: MANUAL DIFF YES; PLATELET COUNT 516 thou/uL (150-400)
[2016-11-23 05:49] LABS: ABSOLUTE NEUTROPHILS 7.8 thou/uL (1.4-8.2); ANISOCYTOSIS SLIGHT; ATYPICAL LYMPHS 1 %; LARGE PLATELETS OCCASIONAL; TOTAL CELL COUNT 100
[2016-11-23 08:36] VITALS: BP 106/68
[2016-11-23 09:10] LABS: URINE BILIRUBIN NEGATIVE (Negative); URINE BLOOD NEGATIVE (Negative); URINE COLOR YELLOW; URINE GLUCOSE-RANDOM* NEGATIVE (Negative); URINE KETONES NEGATIVE (Negative); URINE NITRITE NEGATIVE (Negative); URINE PROTEIN (DIPSTICK) NEGATIVE (Negative); URINE SPECIFIC GRAVITY 1.015 (1.003-1.035)
[2016-11-23 20:50] VITALS: BP 98/58
[2016-11-24 08:00] VITALS: BP 112/71
[2016-11-24 20:12] VITALS: BP 97/60
[2016-11-25 08:30] VITALS: BP 112/67
[2016-11-25 20:31] VITALS: BP 90/62
[2016-11-26 09:00] VITALS: BP 110/74
[2016-11-26 19:47] VITALS: BP 101/60
[2016-11-27 06:32] LABS: ABSOLUTE NEUTROPHILS 5.1 thou/uL (1.4-8.2); BASOPHILS 0.9 % (0.0-2.0); EOSINOPHILS 0.4 % (0.0-3.0); HEMATOCRIT 33.5 % (42.0-52.0); HEMOGLOBIN 11.5 gm/dL (14.0-18.0); LYMPHOCYTES 31.5 % (24.0-44.0); MCHC 34.2 g/dL (28.0-37.0); MCV 90.7 fL (80.0-100.0); MONOCYTES 10.1 % (1.0-8.0); PLATELET COUNT 455 thou/uL (150-400); POLYS 57.1 % (36.0-66.0); RBC 3.69 mil/uL (4.50-6.00); RDW 14.6 % (10.5-14.5); WBC 8.9 thou/uL (4.0-11.0)
[2016-11-27 06:39] LABS: MANUAL DIFF NO
[2016-11-27 06:56] LABS: CALCIUM 9.1 mg/dL (8.5-10.1); CREATININE 0.6 mg/dL (0.7-1.3); MAGNESIUM 2.5 mg/dL (1.8-2.4); POTASSIUM 4.4 mmol/L (3.5-5.1)
[2016-11-27 08:15] VITALS: BP 120/63
[2016-11-27 19:48] VITALS: BP 88/55
[2016-11-28 09:00] VITALS: BP 131/62
[2016-11-28 19:52] VITALS: BP 90/50
[2016-11-29 08:00] VITALS: BP 126/63
[2016-11-29 20:34] VITALS: BP 105/55
[2016-11-30 03:38] LABS: ABSOLUTE NEUTROPHILS 4.9 thou/uL (1.4-8.2); EOSINOPHILS 0.5 % (0.0-3.0); HEMATOCRIT 32.9 % (42.0-52.0); HEMOGLOBIN 11.1 gm/dL (14.0-18.0); LYMPHOCYTES 39.3 % (24.0-44.0); MANUAL DIFF NO; MCH 30.8 pg (26.0-34.0); MCHC 33.6 g/dL (28.0-37.0); MCV 91.7 fL (80.0-100.0); MONOCYTES 7.9 % (1.0-8.0); PLATELET COUNT 366 thou/uL (150-400); POLYS 51.3 % (36.0-66.0); RBC 3.59 mil/uL (4.50-6.00); WBC 9.6 thou/uL (4.0-11.0)
[2016-11-30 03:56] LABS: ALBUMIN 2.3 g/dL (3.4-5.0); CALCIUM 8.8 mg/dL (8.5-10.1); CREATININE 0.7 mg/dL (0.7-1.3); MAGNESIUM 2.2 mg/dL (1.8-2.4); POTASSIUM 4.4 mmol/L (3.5-5.1); TOTAL BILIRUBIN 0.2 mg/dL (<0.1-1.0); TOTAL PROTEIN 6.4 g/dL (6.4-8.2)
[2016-11-30 09:15] VITALS: BP 119/67
[2016-11-30 21:12] VITALS: BP 91/51
[2016-12-01 08:00] VITALS: BP 105/67
[2016-12-01 20:05] VITALS: BP 112/59
[2016-12-02 07:18] VITALS: BP 132/60
[2016-12-02 19:52] VITALS: BP 111/52
[2016-12-03 06:05] LABS: ABSOLUTE NEUTROPHILS 3.6 thou/uL (1.4-8.2); EOSINOPHILS 1.5 % (0.0-3.0); HEMATOCRIT 34.4 % (42.0-52.0); HEMOGLOBIN 11.7 gm/dL (14.0-18.0); LYMPHOCYTES 41.3 % (24.0-44.0); MCH 31.4 pg (26.0-34.0); MCHC 33.9 g/dL (28.0-37.0); MCV 92.5 fL (80.0-100.0); MONOCYTES 8.3 % (1.0-8.0); PLATELET COUNT 297 thou/uL (150-400); POLYS 47.9 % (36.0-66.0); RBC 3.72 mil/uL (4.50-6.00); RDW 15.8 % (10.5-14.5); WBC 7.6 thou/uL (4.0-11.0)
[2016-12-03 06:13] LABS: MANUAL DIFF NO
[2016-12-03 06:24] LABS: CALCIUM 9.2 mg/dL (8.5-10.1); CREATININE 0.6 mg/dL (0.7-1.3); POTASSIUM 4.6 mmol/L (3.5-5.1)
[2016-12-03 08:00] VITALS: BP 124/65
[2016-12-03 20:25] VITALS: BP 90/52
[2016-12-04 08:00] VITALS: BP 123/70
[2016-12-04 15:34] VITALS: BP 123/70
[2016-12-04 20:07] VITALS: BP 106/55
[2016-12-05 08:00] VITALS: BP 132/67
[2016-12-05] MEDS ORDERED: LOPERAMIDE 2 MG2 M1 PO (08:16)
[2016-12-05] MEDS ORDERED: LISINOPRIL5 MG PO (08:16)
[2016-12-05] MEDS ORDERED: REQUIP 0.25 M0.25 MG PO (08:16)
[2016-12-05] MEDS ORDERED: FLOMAX0.4 MG PO (08:16)
[2016-12-05] MEDS ORDERED: SEROQUEL 25 MG25 M1 PO (08:16)
[2016-12-05] MEDS ORDERED: MIRALAX17 GM PO (10:29)
[2016-12-05] MEDS ORDERED: SENNA8.6 MG PO (10:29)
[2016-12-05 10:57] VITALS: BP 123/70
== END 2016-12-05 13:00 | disposition home health service (06) | DRG 56 ==
LOC: ENTRNSPT 12-05 13:24 → EDTRNSPTSTS 12-05 13:26
PROVIDERS: Family Medicine; Internal Medicine; Nurse Practitioner; Physical Medicine & Rehabilitation
DX: G20 Parkinson's disease (principal); J18.9 Pneumonia, unspecified organism; R53.81 Other malaise; I10 Essential (primary) hypertension; F31.9 Bipolar disorder, unspecified; E78.00 Pure hypercholesterolemia, unspecified; M47.9 Spondylosis, unspecified; K21.9 Gastro-esophageal reflux disease without esophagitis; R19.7 Diarrhea, unspecified; R33.9 Retention of urine, unspecified; K59.00 Constipation, unspecified; M19.90 Unspecified osteoarthritis, unspecified site; R26.9 Unspecified abnormalities of gait and mobility; K64.9 Unspecified hemorrhoids; N40.0 Benign prostatic hyperplasia without lower urinary tract symptoms; R63.4 Abnormal weight loss; F17.210 Nicotine dependence, cigarettes, uncomplicated; W18.39XA Other fall on same level, initial encounter; Z68.20 Body mass index [BMI] 20.0-20.9, adult; Y93.89 Activity, other specified; Y99.8 Other external cause status; Y92.098 Other place in other non-institutional residence as the place of occurrence of the external cause; Z79.899 Other long term (current) drug therapy
CPT/HCPCS: 10112

== ENCOUNTER 2017-08-07 18:24 | Emergency (ER) | payer OTHER ==
[~2017-08-07] VITALS: Ht 177.8 cm; Wt 68.0 kg
--- NOTE | ~2017-08-07 | EKG ---
[place] [address] [employer] [place] [address] ELECTROCARDIOGRAM REPORT Name: MEGHA WATTS [facility] [id number] Admission: 08/07/17 Attend Phys: Discharge: 08/07/17 Date of : 44 Report #: [id number] THIS REPORT FOR: //name// [facility] ED Test Date: 2017-08-07 Test Time: 18:52:35 Pat Name: MEGHA WATTS Department: Room: Gender: M Associate Software Engineer: magalis : 1945 Requested By: Nathan Hdez Order Number: [id number] MD: Prakash Montes Measurements Intervals [place] Rate: 68 P: 39 [place]: 190 QRS: 11 QRSD: 95 T: 39 QT: 380 QTc: 405 Interpretive Statements Sinus rhythm Low voltage, extremity leads Baseline wander in lead(s) V2 Compared to ECG 11/14/2016 06:42:54 No significant change was found Electronically Signed On 08-08-2017 7:55:48 CDT by Prakash Montes [email or web address] <ELECTRONICALLY SIGNED> By: Prakash Montes MD, [facility] 08/08/17 0755 51 51 Prakash Montes MD, [facility] /EPI
[~2017-08-07 18:24] MED LIST changes: +AUGMENTIN 875-1 EACH PO; +FLOMAX0.4 MG PO; +LISINOPRIL5 MG PO; +LOPERAMIDE 2 MG2 M1 PO; +NICOTINE TRANSD14 M1 TRANSDERM; +REQUIP 0.25 M0.25 MG PO; +SENNA8.6 MG PO; +SEROQUEL 25 MG25 M1 PO
[2017-08-07 18:44] LABS: ABSOLUTE NEUTROPHILS 3.2 thou/uL (1.4-8.2); BASOPHILS 0.7 % (0.0-2.0); EOSINOPHILS 0.8 % (0.0-3.0); HEMATOCRIT 45.1 % (42.0-52.0); HEMOGLOBIN 15.7 gm/dL (14.0-18.0); LYMPHOCYTES 44.8 % (24.0-44.0); MCH 33.7 pg (26.0-34.0); MCHC 34.7 g/dL (28.0-37.0); MONOCYTES 6.2 % (1.0-8.0); PLATELET COUNT 230 thou/uL (150-400); POLYS 47.5 % (36.0-66.0); RBC 4.66 mil/uL (4.50-6.00); RDW 12.8 % (10.5-14.5); WBC 6.7 thou/uL (4.0-11.0)
[2017-08-07 18:50] LABS: ANION GAP 7 mmol/L (7-16); BUN 22 mg/dL (7-18); CALCIUM 9.5 mg/dL (8.5-10.1); CHLORIDE 103 mmol/L (98-107); CO2 30 mmol/L (21-32); CREATININE 0.9 mg/dL (0.7-1.3); GLUCOSE 91 mg/dL (74-106); POTASSIUM 4.2 mmol/L (3.5-5.1); SODIUM 140 mmol/L (136-145)
[2017-08-07 18:58] LABS: ALBUMIN 3.7 g/dL (3.4-5.0); LIPASE 193 U/L (73-393); SGOT 21 U/L (15-37); SGPT 22 U/L (30-65); TOTAL BILIRUBIN 0.6 mg/dL (<0.1-1.0); TOTAL PROTEIN 7.4 g/dL (6.4-8.2); TROPONIN-I <0.06 ng/mL (<0.06)
[2017-08-09] MEDS ORDERED: MIRALAX17 GM PO (18:13)
[2017-08-09] MEDS ORDERED: SENNA S TABLET1 EACH PO (18:13)
[2017-08-09] MEDS ORDERED: KEFLEX500 M1 PO (18:26)
== END 2017-08-07 22:53 | disposition home or self-care (01) ==
LOC: ER 18:24
PROVIDERS: Emergency Medicine
DX: K56.41 Fecal impaction (principal); I10 Essential (primary) hypertension; E78.00 Pure hypercholesterolemia, unspecified; K21.9 Gastro-esophageal reflux disease without esophagitis; F31.9 Bipolar disorder, unspecified; M19.90 Unspecified osteoarthritis, unspecified site; F17.210 Nicotine dependence, cigarettes, uncomplicated

== ENCOUNTER 2017-08-10 00:12 | Inpatient (IN) | payer OTHER ==
[2017-08-10] VITALS (8 sets, daily range): BP systolic 92–113; BP diastolic 51–59
[~2017-08-10] VITALS: Ht 177.8 cm; Wt 77.1 kg
[~2017-08-10 00:12] MED LIST changes: +KEFLEX500 M1 PO; +SENNA S TABLET1 EACH PO
[2017-08-10 00:37] LABS: HEMATOCRIT 43.9 % (42.0-52.0); HEMOGLOBIN 15.6 gm/dL (14.0-18.0); MCH 33.7 pg (26.0-34.0); MCHC 35.5 g/dL (28.0-37.0); MCV 95.1 fL (80.0-100.0); RBC 4.61 mil/uL (4.50-6.00); RDW 12.4 % (10.5-14.5); WBC 7.8 thou/uL (4.0-11.0)
[2017-08-10 00:41] LABS: CALCIUM 9.3 mg/dL (8.5-10.1); CREATININE 0.9 mg/dL (0.7-1.3); POTASSIUM 3.9 mmol/L (3.5-5.1)
[2017-08-10 00:53] LABS: APTT 29.8 Seconds (24.5-32.8); INR 1.1; PROTIME 10.9 Seconds (9.3-11.4)
[2017-08-11 05:02] VITALS: BP 121/74
[2017-08-11 09:35] VITALS: BP 92/58
[2017-08-11 16:00] VITALS: BP 85/55
[2017-08-11 20:00] VITALS: BP 96/60
[2017-08-12 04:12] VITALS: BP 109/64
[2017-08-12 07:08] VITALS: BP 109/68
[2017-08-12 09:36] VITALS: BP 109/68
[2017-08-12] MEDS ORDERED: MIRALAX17 GM PO (10:42)
[2017-08-12 15:51] VITALS: BP 125/74
[2017-08-12 19:30] VITALS: BP 103/58
[2017-08-13 04:28] VITALS: BP 93/47
[2017-08-13 07:21] VITALS: BP 95/56
[2017-08-13 19:10] VITALS: BP 102/60
[2017-08-14 03:10] VITALS: BP 106/68
[2017-08-14 06:01] LABS: HEMATOCRIT 41.2 % (42.0-52.0); HEMOGLOBIN 14.5 gm/dL (14.0-18.0); MCH 33.6 pg (26.0-34.0); MCHC 35.1 g/dL (28.0-37.0); MCV 95.8 fL (80.0-100.0); RBC 4.3 mil/uL (4.50-6.00); RDW 12.9 % (10.5-14.5); WBC 6.3 thou/uL (4.0-11.0)
[2017-08-14 06:09] LABS: POTASSIUM 4.6 mmol/L (3.5-5.1)
[2017-08-14 06:30] LABS: CREATININE 0.9 mg/dL (0.7-1.3)
[2017-08-14 07:00] VITALS: BP 108/64
[2017-08-14 10:13] VITALS: BP 108/64
[2017-08-14 20:10] VITALS: BP 109/59
[2017-08-15 07:28] VITALS: BP 108/64
[2017-08-15] MEDS ORDERED: FLOMAX0.4 MG PO (12:36)
== END 2017-08-15 14:44 | DRG 696 ==
LOC: ER 00:12 → 4E 00:26 → EROBS 00:26 → 4E 01:35 → SICU 08-12 08:30 → 4E 08-12 08:30 → SICU 08-14 16:27
PROVIDERS: Emergency Medicine; Hospitalist
DX: R33.9 Retention of urine, unspecified (principal); K56.41 Fecal impaction; R63.4 Abnormal weight loss; I10 Essential (primary) hypertension; E78.00 Pure hypercholesterolemia, unspecified; K21.9 Gastro-esophageal reflux disease without esophagitis; F31.9 Bipolar disorder, unspecified; M47.9 Spondylosis, unspecified; F17.210 Nicotine dependence, cigarettes, uncomplicated; E03.9 Hypothyroidism, unspecified; Z60.2 Problems related to living alone; Z82.49 Family history of ischemic heart disease and other diseases of the circulatory system; Z79.899 Other long term (current) drug therapy; Z68.24 Body mass index [BMI] 24.0-24.9, adult
CPT/HCPCS: 10084; 15000

== ENCOUNTER 2017-10-29 14:51 | Inpatient (IN) | payer OTHER ==
[~2017-10-29] VITALS: Ht 177.8 cm; Wt 59.0 kg
[~2017-10-29 14:51] MED LIST changes: +MELATONIN3 MG PO
[2017-10-29 14:53] VITALS: BP 127/67
[2017-10-29] MEDS ORDERED: SEROQUEL 50 MG50 MG PO (15:46)
[2017-10-29 16:10] LABS: ABSOLUTE NEUTROPHILS 2.5 thou/uL (1.4-8.2); EOSINOPHILS 1.2 % (0.0-3.0); HEMATOCRIT 41.2 % (42.0-52.0); HEMOGLOBIN 14.5 gm/dL (14.0-18.0); LYMPHOCYTES 44.7 % (24.0-44.0); MCH 33.6 pg (26.0-34.0); MCHC 35.3 g/dL (28.0-37.0); MCV 95.3 fL (80.0-100.0); MONOCYTES 7.7 % (1.0-8.0); PLATELET COUNT 166 thou/uL (150-400); POLYS 45.4 % (36.0-66.0); RBC 4.32 mil/uL (4.50-6.00); RDW 13.2 % (10.5-14.5); WBC 5.5 thou/uL (4.0-11.0)
[2017-10-29 16:22] LABS: CALCIUM 9.5 mg/dL (8.5-10.1); POTASSIUM 3.7 mmol/L (3.5-5.1)
[2017-10-29 16:26] LABS: ALBUMIN 3.4 g/dL (3.4-5.0); DIRECT BILIRUBIN 0.1 mg/dL (<0.1-0.3); TOTAL BILIRUBIN 0.5 mg/dL (<0.1-1.0); TOTAL PROTEIN 7.1 g/dL (6.4-8.2)
[2017-10-29 18:24] VITALS: BP 121/65
[2017-10-29 19:22] LABS: URINE BLOOD NEGATIVE (Negative); URINE CLARITY CLEAR; URINE COLOR YELLOW; URINE GLUCOSE-RANDOM* NEGATIVE (Negative); URINE KETONES 1+ (Negative); URINE LEUKOCYTES-REFLEX NEGATIVE (Negative); URINE NITRITE-REFLEX NEGATIVE (Negative); URINE PROTEIN (DIPSTICK) NEGATIVE (Negative); URINE SPECIFIC GRAVITY >= 1.030 (1.005-1.035); URINE UROBILINOGEN 0.2 E.U./dl (0.2-1.0)
[2017-10-29 19:25] LABS: ICTOTEST (BILI CONFIRMATORY) Negative (Negative); URINE BILIRUBIN NEGATIVE (Negative)
[2017-10-30 04:08] VITALS: BP 100/68
[2017-10-30 08:52] VITALS: BP 116/72
[2017-10-30 09:56] LABS: HEMATOCRIT 40.1 % (42.0-52.0); MCH 33.5 pg (26.0-34.0); MCV 95.6 fL (80.0-100.0); RBC 4.19 mil/uL (4.50-6.00); RDW 13.4 % (10.5-14.5); WBC 6.9 thou/uL (4.0-11.0)
[2017-10-30 10:05] LABS: CALCIUM 9.1 mg/dL (8.5-10.1); CREATININE 0.9 mg/dL (0.7-1.3); MAGNESIUM 2.3 mg/dL (1.8-2.4); POTASSIUM 3.8 mmol/L (3.5-5.1)
[2017-10-30 11:38] VITALS: BP 119/78
[2017-10-30] MEDS ORDERED: MIRALAX17 GM PO (12:47)
[2017-10-30] MEDS ORDERED: SENNA8.6 MG PO (12:54)
[2017-10-30 14:06] VITALS: BP 119/78
== END 2017-10-30 16:30 | disposition home health service (06) | DRG 392 ==
LOC: ER 14:51 → 4W 17:37 → EROBS 17:37 → 4W 18:39 → SICU 10-30 11:44 → ENTRNSPT 10-30 16:23 → SICU 10-30 16:30
PROVIDERS: Emergency Medicine; Internal Medicine
DX: K59.00 Constipation, unspecified (principal); E44.0 Moderate protein-calorie malnutrition; Z68.1 Body mass index [BMI] 19.9 or less, adult; I10 Essential (primary) hypertension; E78.00 Pure hypercholesterolemia, unspecified; K21.9 Gastro-esophageal reflux disease without esophagitis; F31.9 Bipolar disorder, unspecified; M47.9 Spondylosis, unspecified; K08.409 Partial loss of teeth, unspecified cause, unspecified class; F17.210 Nicotine dependence, cigarettes, uncomplicated; N40.0 Benign prostatic hyperplasia without lower urinary tract symptoms; Z79.899 Other long term (current) drug therapy; Z82.49 Family history of ischemic heart disease and other diseases of the circulatory system; Z82.69 Family history of other diseases of the musculoskeletal system and connective tissue
CPT/HCPCS: 10040

== ENCOUNTER 2018-01-05 08:41 | Emergency (ER) | payer OTHER ==
[~2018-01-05] VITALS: Ht 177.8 cm; Wt 69.0 kg
--- NOTE | ~2018-01-05 | EKG ---
[place] [address] [address] [facility] [place] [address] ELECTROCARDIOGRAM REPORT Name: WATTSMEGHA MOSQUERA Room #: DEP Satish#: [id number] Admission: 01/05/18 Attend Phys: Discharge: 01/05/18 Date of : 43 Report #: [id number] THIS REPORT FOR: //name// [facility] ED Test Date: 2018-01-05 Test Time: 10:33:52 Pat Name: MEGHA WATTS Department: Room: Gender: M Transcribing Operator Head: [facility] : 1945 Requested By: Veronica Streeter Order Number: [id number] MD: Son Royal Measurements Intervals [place] Rate: 62 P: 48 [place]: 210 QRS: -33 QRSD: 95 T: 35 QT: 420 QTc: 427 Interpretive Statements Sinus rhythm Atrial premature complex Left axis deviation Borderline low voltage, extremity leads Compared to ECG 08/07/2017 18:52:35 Atrial premature complex(es) now present Electronically Signed On 01-05-2018 23:50:55 SURGICAL ATTENDANT by Son Royal [email or web address] <ELECTRONICALLY SIGNED> By: Son Royal MD 01/05/18 1680 Son Royal MD /EPI
[~2018-01-05 08:41] MED LIST changes: +SEROQUEL 50 MG50 MG PO
[2018-01-05 09:25] LABS: ABSOLUTE NEUTROPHILS 4.2 thou/uL (1.4-8.2); BASOPHILS 0.6 % (0.0-2.0); EOSINOPHILS 1.4 % (0.0-3.0); HEMATOCRIT 41.7 % (42.0-52.0); HEMOGLOBIN 14.4 gm/dL (14.0-18.0); LYMPHOCYTES 27.2 % (24.0-44.0); MCH 33.2 pg (26.0-34.0); MCHC 34.6 g/dL (28.0-37.0); MCV 95.8 fL (80.0-100.0); MONOCYTES 9.1 % (1.0-8.0); PLATELET COUNT 187 thou/uL (150-400); POLYS 61.7 % (36.0-66.0); RBC 4.35 mil/uL (4.50-6.00); RDW 12.6 % (10.5-14.5); WBC 6.7 thou/uL (4.0-11.0)
[2018-01-05 09:32] LABS: ANION GAP 9 mmol/L (7-16); BUN 22 mg/dL (7-18); CALCIUM 9.6 mg/dL (8.5-10.1); CHLORIDE 101 mmol/L (98-107); CO2 27 mmol/L (21-32); CREATININE 0.9 mg/dL (0.7-1.3); GLUCOSE 81 mg/dL (74-106); POTASSIUM 3.9 mmol/L (3.5-5.1); SODIUM 137 mmol/L (136-145)
[2018-01-05 09:41] LABS: TROPONIN-I <0.06 ng/mL (<0.06)
[2018-01-05] MEDS ORDERED: LOPERAMIDE 2 MG2 M1 PO (10:20)
[2018-01-05 11:00] VITALS: BP 100/69
== END 2018-01-05 11:00 | disposition home or self-care (01) ==
LOC: ER 08:41
PROVIDERS: Student in an Organized Health Care Education/Training Program
DX: R19.7 Diarrhea, unspecified (principal); F17.210 Nicotine dependence, cigarettes, uncomplicated; I10 Essential (primary) hypertension; E78.00 Pure hypercholesterolemia, unspecified; K21.9 Gastro-esophageal reflux disease without esophagitis; F31.9 Bipolar disorder, unspecified; M46.96 Unspecified inflammatory spondylopathy, lumbar region

== ENCOUNTER 2018-01-31 00:25 | Emergency (ER) | payer OTHER ==
[~2018-01-31] VITALS: Ht 177.8 cm; Wt 70.3 kg
[2018-01-31 00:59] LABS: ABSOLUTE NEUTROPHILS 7.2 thou/uL (1.4-8.2); BASOPHILS 0.4 % (0.0-2.0); EOSINOPHILS 0.1 % (0.0-3.0); HEMOGLOBIN 13.8 gm/dL (14.0-18.0); LYMPHOCYTES 13.5 % (24.0-44.0); MCH 33.3 pg (26.0-34.0); MCHC 34.4 g/dL (28.0-37.0); MCV 96.7 fL (80.0-100.0); MONOCYTES 8.9 % (1.0-8.0); PLATELET COUNT 290 thou/uL (150-400); POLYS 77.1 % (36.0-66.0); RBC 4.13 mil/uL (4.50-6.00); RDW 13.2 % (10.5-14.5); WBC 9.3 thou/uL (4.0-11.0)
[2018-01-31 01:04] LABS: CALCIUM 9.7 mg/dL (8.5-10.1); CREATININE 1.2 mg/dL (0.7-1.3); POTASSIUM 4.5 mmol/L (3.5-5.1)
[2018-01-31 01:10] LABS: ALBUMIN 3.8 g/dL (3.4-5.0); DIRECT BILIRUBIN 0.2 mg/dL (<0.1-0.3); TOTAL BILIRUBIN 0.5 mg/dL (<0.1-1.0); TOTAL PROTEIN 7.8 g/dL (6.4-8.2)
[2018-01-31] MEDS ORDERED: MOBIC15 MG PO (01:49)
[2018-01-31] MEDS ORDERED: KRISTALOSE20 GM PO (01:49)
[2018-01-31] MEDS ORDERED: BISACODYL SUPP10 MG RECTAL (01:49)
[2018-01-31 02:16] VITALS: BP 108/47
[2018-02-03] MEDS ORDERED: KEFLEX500 M1 PO (15:16)
== END 2018-01-31 02:16 | disposition home or self-care (01) ==
LOC: ER 00:25
PROVIDERS: Emergency Medicine
DX: K59.00 Constipation, unspecified (principal); R19.7 Diarrhea, unspecified; F17.210 Nicotine dependence, cigarettes, uncomplicated; I10 Essential (primary) hypertension; E78.00 Pure hypercholesterolemia, unspecified; F31.9 Bipolar disorder, unspecified; M46.96 Unspecified inflammatory spondylopathy, lumbar region

== ENCOUNTER 2018-02-01 15:31 | Inpatient (IN) | payer OTHER ==
[~2018-02-01] VITALS: Ht 177.8 cm; Wt 68.6 kg
[~2018-02-01 15:31] MED LIST changes: +BISACODYL SUPP10 MG RECTAL; +KRISTALOSE20 GM PO; +MOBIC15 MG PO
[2018-02-01 15:32] VITALS: BP 153/76
[2018-02-01 17:06] LABS: ABSOLUTE NEUTROPHILS 10.4 thou/uL (1.4-8.2); BASOPHILS 0.2 % (0.0-2.0); HEMATOCRIT 39.2 % (42.0-52.0); HEMOGLOBIN 13.1 gm/dL (14.0-18.0); LYMPHOCYTES 6.1 % (24.0-44.0); MCH 32.4 pg (26.0-34.0); MCHC 33.3 g/dL (28.0-37.0); MCV 97.2 fL (80.0-100.0); MONOCYTES 11.9 % (1.0-8.0); PLATELET COUNT 260 thou/uL (150-400); POLYS 81.8 % (36.0-66.0); RBC 4.03 mil/uL (4.50-6.00); RDW 13.3 % (10.5-14.5); WBC 12.7 thou/uL (4.0-11.0)
[2018-02-01 17:16] LABS: CALCIUM 9.7 mg/dL (8.5-10.1); CREATININE 1.5 mg/dL (0.7-1.3); POTASSIUM 4.1 mmol/L (3.5-5.1)
[2018-02-01 19:07] VITALS: BP 131/67
--- NOTE | 2018-02-01 20:15 | NUR ---
Pt. arrived to the unit from the emergency room accompanied by staff. He is alert and oriented. Admission assessment and history is completed. Pt. refused to have his tele monitor placed on. He verbalized abruptly that he has sensitive skin. Even upon skin assessment he was not very compliant. Zaira Lance TELESERVICES REPRESENTATIVE aware of pt.refusal to wear the tele monitor.
[2018-02-01 21:00] VITALS: BP 113/83
[2018-02-02 03:03] VITALS: BP 100/47
[2018-02-02 05:08] LABS: HEMATOCRIT 34.6 % (42.0-52.0); HEMOGLOBIN 11.7 gm/dL (14.0-18.0); MCHC 33.9 g/dL (28.0-37.0); MCV 97.3 fL (80.0-100.0); RBC 3.55 mil/uL (4.50-6.00); RDW 13.2 % (10.5-14.5); WBC 10.5 thou/uL (4.0-11.0)
[2018-02-02 05:12] LABS: CALCIUM 9.1 mg/dL (8.5-10.1); POTASSIUM 3.4 mmol/L (3.5-5.1)
[2018-02-02 07:59] VITALS: BP 90/49
[2018-02-02 08:01] LABS: URINE BLOOD 3+ (Negative); URINE CLARITY CLOUDY; URINE COLOR YELLOW; URINE GLUCOSE-RANDOM* NEGATIVE (Negative); URINE KETONES TRACE (Negative); URINE PROTEIN (DIPSTICK) 1+ (Negative); URINE SPECIFIC GRAVITY 1.015 (1.005-1.035); URINE UROBILINOGEN 0.2 E.U./dl (0.2-1.0)
[2018-02-02 08:04] LABS: URINE LEUKOCYTES-REFLEX 3+ (Negative); URINE NITRITE-REFLEX POSITIVE (Negative)
[2018-02-02 08:05] LABS: ICTOTEST (BILI CONFIRMATORY) Negative (Negative); URINE BILIRUBIN NEGATIVE (Negative)
[2018-02-02 11:45] LABS: BACTERIA-REFLEX >30 Many /HPF (None Seen); CASTS None Seen /LPF (None Seen); CRYSTALS None Seen /LPF (None Seen); SQUAMOUS 0-3 Few /LPF (0-3); URINE RBC >20 Many /HPF (0-2); URINE WBC-REFLEX >25 Many /HPF (0-5)
--- NOTE | 2018-02-02 14:39 | NUR ---
ASSUMED CARE AT 0700. AXOX4. NUÑEZ FOR URINARY RETNETION. PER NOC RN, URINE WAS COLLECTED AN SENT DOWN. PT NOW HAS NEW DX UTI. PERSISTENT PAIN IN RECTUM D/T HEMORRHOIDS AND C/O BOWEL INCONTINENCE. REPORTED TO AT BEDSIDE N/O PAIN MEDS AND ROCEPHINE FOR UTI. NUÑEZ DRAINING DARK YELLOW URINW WITG SEDIMENTS. HAD 3 SMALL BM. MULTIPLE STOOL SOFTNER GIVEN FOR CONSTIPATION. ON FLUID SUPPORT. WILL CONT TO MONITOR FOR ANY CHANGES.
[2018-02-02 15:33] VITALS: BP 103/49
[2018-02-02 19:53] VITALS: BP 98/56
[2018-02-03 04:14] VITALS: BP 111/70
--- NOTE | 2018-02-03 04:36 | NUR ---
Pt. rested quietly at intervals during the night when checked on during frequent rounds. He c/o pain to his rectum and po pain meds given (see emar) with some relief noted. Incontinent of a small amount of stool and farshad care given. Bed alarm is on.
[2018-02-03 07:50] VITALS: BP 114/50
[2018-02-03] MEDS ORDERED: KEFLEX500 M1 PO ×2 (15:16)
[2018-02-03 16:00] VITALS: BP 115/59
--- NOTE | 2018-02-03 19:45 | NUR ---
ALERT AND ORIENTED X 4. MAIN COMPLAINT RECTAL PAIN. MEDICATED WITH 2 LORTAB X 2 AND HELPFUL. REFUSING HEMORRHOID CREAM OR SUPPOSITORY. NO SKIN BREAKDOWN NOTED. TOLERATING DIET. TURNS SELF IN BED. PERICARE GIVEN. URINE DARK TEA COLORED UNTIL APPROXIMATELY MID AFTERNOON AND THEN NOTED LARGE AMOUNT OF BLOOD IN URINE. NOTIFIED DR. MUÑOZ. HOLDING DISCHARGE. NUÑEZ REMAINS IN. NO BLEEDING NOTED AROUND MEATUS. NUÑEZ SECURED WITH SECUREMENT DEVICE.
[2018-02-03 19:54] VITALS: BP 121/66
[2018-02-04 03:35] VITALS: BP 120/61
[2018-02-04 03:52] VITALS: BP 120/61
--- NOTE | 2018-02-04 05:14 | NUR ---
RESTING QUIETLY TONIGHT. PAIN CONTROLED WITH HIS PO PAIN RELIEVER. URINE CONTINUES TO BE RED TINTED IN COLOR, IT IS TRANSPARENT. DENIES PULLING AT URINARY CATHETER. CONTINUES TO LIQUID BOWEL MOVEMENTS TONIGHT. PROGRESSING SLOWLY TOWARD DISCHARGE GOALS
[2018-02-04 08:32] VITALS: BP 119/67
[2018-02-04 09:35] LABS: HEMATOCRIT 37.5 % (42.0-52.0); HEMOGLOBIN 12.6 gm/dL (14.0-18.0); MCH 32.7 pg (26.0-34.0); MCHC 33.7 g/dL (28.0-37.0); MCV 97.1 fL (80.0-100.0); RBC 3.86 mil/uL (4.50-6.00); RDW 12.8 % (10.5-14.5); WBC 8.9 thou/uL (4.0-11.0)
[2018-02-04 09:52] LABS: ALBUMIN 2.3 g/dL (3.4-5.0); CALCIUM 8.3 mg/dL (8.5-10.1); CREATININE 0.8 mg/dL (0.7-1.3); MAGNESIUM 1.6 mg/dL (1.8-2.4); POTASSIUM 3.9 mmol/L (3.5-5.1); TOTAL BILIRUBIN 0.5 mg/dL (<0.1-1.0); TOTAL PROTEIN 5.8 g/dL (6.4-8.2)
[2018-02-04 16:15] VITALS: BP 109/60
--- NOTE | 2018-02-04 18:05 | NUR ---
TOWARDS POC PT A/O X4, VSS, AFEBRILE. PAIN MANAGED BY MEDS. NUÑEZ CATH WITH DARK YELLOW OUTPUT, DRAINING PATENTLY. PT HAD COUPLE OF SOFT UNFORMED STOOL TODAY. NO CONCERNS VOICED. WILL CONTINUE TO MONITOR.
[2018-02-04 19:14] VITALS: BP 116/67
--- NOTE | 2018-02-05 01:30 | NUR ---
PT C/O PAIN ON HIS RECTUM,MGED WITH PO PAIN MED.NUÑEZ CATH IN PLACED,NO BLOODNOTED SO FAR,HAD DARK TEA COLORED URINE WITH GOOD OUTPUT.PT REPOSITIONS SELF WHILE IN BED.NO BM NOTED SO FAR THIS SHIFT.PT ABLE TO MAKE HIS NEEDS KNOWN.CALL LIGHT WITHIN REACH.
[2018-02-05 02:24] VITALS: BP 100/51
[2018-02-05 06:08] LABS: CALCIUM 8.3 mg/dL (8.5-10.1); CREATININE 0.8 mg/dL (0.7-1.3); POTASSIUM 4.1 mmol/L (3.5-5.1)
[2018-02-05 08:10] VITALS: BP 120/60
[2018-02-05 08:46] LABS: HEMATOCRIT 36.1 % (42.0-52.0); HEMOGLOBIN 12.1 gm/dL (14.0-18.0); MCH 33.1 pg (26.0-34.0); MCHC 33.5 g/dL (28.0-37.0); MCV 98.9 fL (80.0-100.0); RBC 3.65 mil/uL (4.50-6.00); RDW 13.1 % (10.5-14.5); WBC 8.2 thou/uL (4.0-11.0)
[2018-02-05 08:50] LABS: MAGNESIUM 1.7 mg/dL (1.8-2.4)
--- NOTE | 2018-02-05 13:06 | NUR ---
ASSESSMENT-PT LIVES AT HOME ALONE. PT SAYS HE IS NOW ONLY USING A CANE OCCASIONALLY TO GET AROUND. PT HAS AN ELEVATOR. 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 PT SAYS HE HAS BEEN EXERCISING AT HOME. HE HAS A WALKER AND A WC BUT NOT USING THEM CURRENTLY. PT SAYS [facility] PT HAS HAD [facility] IN THE PAST & AGREEABLE TO HAVING THEM AGAIN IF NEEDED. PT'S BROTHER WILL TRANSPORT HIM HOME TODAY AND CHECKS ON HIM NEEDED. PT SAYS HE IS PLANNING ON DISCHARGING HOME TODAY.
--- NOTE | 2018-02-05 15:45 | NUR ---
CARE TEAM INDICATED THAT PT IS DISCHARGING AMA TODAY PT IS NOT WILLING TO DISHCARGE HOME WITH A NUÑEZ CATHETER IN PLACE TO THEN FOLLOW UP WITH A UROLOGIST PER THE RECOMMENDATION OF THE PHYSICIAN. PHYSICIAN PROVIDED SCRIPT FOR ABX AND FLOMAX AT TIME OF DISCHARGE AND RECOMMENDED THAT PT FOLLOW UP WITH UROLOGIST AT [place]. PT IS TO BE TRANSPORTED HOME VIA HIS BROTHER. NO OTHER CM INTERVENTION INDICATED AT THIS TIME. CASE CLOSED.
[2018-02-05 15:50] VITALS: BP 121/55
[2018-02-06] MEDS ORDERED: ZANTAC 150MG T150 MG PO (13:14)
== END 2018-02-05 16:25 | disposition home or self-care (01) | DRG 871 ==
LOC: ER 15:31 → 4W 18:19 → EROBS 18:19 → 4W 19:54 → ENTRNSPT 02-05 16:11 → 4W 02-05 16:25
PROVIDERS: Internal Medicine; Nurse Practitioner Family; Student in an Organized Health Care Education/Training Program; ADMIT Hospitalist
DX: A41.9 Sepsis, unspecified organism (principal); N17.0 Acute kidney failure with tubular necrosis; N39.0 Urinary tract infection, site not specified; K56.41 Fecal impaction; I10 Essential (primary) hypertension; R31.9 Hematuria, unspecified; F31.9 Bipolar disorder, unspecified; B95.8 Unspecified staphylococcus as the cause of diseases classified elsewhere; E78.00 Pure hypercholesterolemia, unspecified; R33.9 Retention of urine, unspecified; K21.9 Gastro-esophageal reflux disease without esophagitis; F17.210 Nicotine dependence, cigarettes, uncomplicated; K76.9 Liver disease, unspecified; Z53.21 Procedure and treatment not carried out due to patient leaving prior to being seen by health care provider; M47.9 Spondylosis, unspecified; Z79.899 Other long term (current) drug therapy; Z82.49 Family history of ischemic heart disease and other diseases of the circulatory system; Z91.19 Patient's noncompliance with other medical treatment and regimen
CPT/HCPCS: 10045; 10047

== ENCOUNTER 2018-02-06 12:28 | Emergency (ER) | payer OTHER ==
[~2018-02-06] VITALS: Ht 177.8 cm; Wt 68.0 kg
[2018-02-06] MEDS ORDERED: ZANTAC 150MG T150 MG PO (13:14)
[2018-02-06 14:06] VITALS: BP 121/63
== END 2018-02-06 14:06 | disposition home or self-care (01) ==
LOC: ER 12:28
DX: R33.9 Retention of urine, unspecified (principal); K59.00 Constipation, unspecified; I10 Essential (primary) hypertension; F31.9 Bipolar disorder, unspecified; K21.9 Gastro-esophageal reflux disease without esophagitis; M46.90 Unspecified inflammatory spondylopathy, site unspecified; F17.210 Nicotine dependence, cigarettes, uncomplicated

== ENCOUNTER 2018-02-10 16:50 | Emergency (ER) | payer OTHER ==
[~2018-02-10] VITALS: Ht 177.8 cm; Wt 70.3 kg
[2018-02-10 18:46] VITALS: BP 126/56
== END 2018-02-10 18:52 | disposition home or self-care (01) ==
LOC: ER 16:50
DX: Z46.6 Encounter for fitting and adjustment of urinary device (principal); R33.9 Retention of urine, unspecified; I10 Essential (primary) hypertension; K21.9 Gastro-esophageal reflux disease without esophagitis; F31.9 Bipolar disorder, unspecified; F17.210 Nicotine dependence, cigarettes, uncomplicated

== ENCOUNTER 2018-05-20 16:36 | Inpatient (IN) | payer OTHER ==
[~2018-05-20] VITALS: Ht 177.8 cm; Wt 67.6 kg
[2018-05-20 16:36] VITALS: BP 107/57
[2018-05-20 17:17] LABS: ABSOLUTE NEUTROPHILS 3.5 thou/uL (1.4-8.2); BASOPHILS 0.3 % (0.0-2.0); EOSINOPHILS 0.9 % (0.0-3.0); HEMATOCRIT 39.9 % (42.0-52.0); HEMOGLOBIN 13.8 gm/dL (14.0-18.0); LYMPHOCYTES 33.8 % (24.0-44.0); MCH 34.1 pg (26.0-34.0); MCHC 34.5 g/dL (28.0-37.0); MONOCYTES 10.5 % (1.0-8.0); PLATELET COUNT 137 thou/uL (150-400); POLYS 54.5 % (36.0-66.0); RBC 4.03 mil/uL (4.50-6.00); RDW 14.2 % (10.5-14.5); WBC 6.4 thou/uL (4.0-11.0)
[2018-05-20 17:30] LABS: CALCIUM 9.5 mg/dL (8.5-10.1); CREATININE 0.9 mg/dL (0.7-1.3); POTASSIUM 4.5 mmol/L (3.5-5.1)
--- NOTE | 2018-05-20 17:30 | EKG ---
[place] [address] [place] [address] ELECTROCARDIOGRAM REPORT Name: STEFANIEMEGHA MOSQUERA [facility] [id number] ������������������ Admission: 05/20/18 ������������������ Attend Phys: Discharge: ������������������ Date of : 43 Report #: [id number] ����������������������������������������������������������������� [id number] THIS REPORT FOR: //name// [facility] ED Test Date: 2018-05-20 Test Time: 17:21:11 Pat Name: MEGHA WATTS Department: Room: Gender: M Quality Control: WENDY : 1945 Requested By: Keyona Fair Order Number: [id number] MD: Prakash Montes Measurements Intervals [place] Rate: 57 P: 41 [place]: 207 QRS: 27 QRSD: 96 T: 34 QT: 387 QTc: 377 Interpretive Statements Sinus rhythm Low voltage, extremity leads Compared to ECG 01/05/2018 10:33:52 Atrial premature complex(es) no longer present Left-axis deviation no longer present Electronically Signed On 05-20-2018 17:30:18 CDT by Prakash Montes [email or web address] ��������������������������������������������� <ELECTRONICALLY SIGNED> ���������������������������������������� By: Prakash Montes MD, [facility] ��������������������������������������������� 05/20/18 1730 20 20 Prakash Montes MD, [facility] /EPI
[2018-05-20 17:36] LABS: ALBUMIN 3.2 g/dL (3.4-5.0); TOTAL BILIRUBIN 0.2 mg/dL (<0.1-1.0)
[2018-05-20 21:19] VITALS: BP 91/48
[2018-05-20 21:30] VITALS: BP 91/48
[2018-05-20 22:13] VITALS: BP 132/62
[2018-05-20 23:26] LABS: URINE BILIRUBIN NEGATIVE (Negative); URINE BLOOD 1+ (Negative); URINE CLARITY CLEAR; URINE COLOR YELLOW; URINE GLUCOSE-RANDOM* NEGATIVE (Negative); URINE KETONES NEGATIVE (Negative); URINE LEUKOCYTES-REFLEX NEGATIVE (Negative); URINE NITRITE-REFLEX NEGATIVE (Negative); URINE PROTEIN (DIPSTICK) NEGATIVE (Negative); URINE UROBILINOGEN 0.2 E.U./dl (0.2-1.0)
[2018-05-20 23:32] LABS: BACTERIA-REFLEX None Seen /HPF (None Seen); SQUAMOUS 0-3 Few /LPF (0-3); URINE RBC 3-10 Few /HPF (0-2); URINE WBC-REFLEX 0-5 Rare /HPF (0-5)
[2018-05-20 23:33] LABS: CASTS None Seen /LPF (None Seen); CRYSTALS None Seen /LPF (None Seen)
[2018-05-21 04:30] VITALS: BP 103/52
--- NOTE | 2018-05-21 05:26 | NUR ---
PT ARRIVED TO UNIT APPROX 2200 IN STABLE CONDITION, ABLE TO WALK FROM CART TO ROOM. ADMISSION AND ASSESSMENT COMPLETED, CONSENTS SIGNED. PT A&Ox4, SLIGHTLY IRRITABLE, UP WITH PERSONAL WALKER, CALLING APPROPRIATELY FOR HELP WITH IV POLE. IV FLUIDS INFUSING. EDUCATED ABOUT TREATMENT FOR STOOL IMPACTION, BUT PT REFUSED SUPPOSITORY STATING "THAT IS TOO PAINFUL." HAD TO STRONGLY URGE EVEN TO TAKE THE MIRALAX AND BE HOOKED UP TO IV FLUIDS. TWICE TONIGHT HAD SMALL AMOUNT LIQUID IN BRIEF, BUT NO SOLID STOOL PASSED. URINE SAMPLE SENT TO LAB, STILL NEED A STOOL SAMPLE. NO OTHER CONCERNS, WILL CONTINUE TO MONITOR.
[2018-05-21 07:55] VITALS: BP 95/52
[2018-05-21 16:00] VITALS: BP 114/55
--- NOTE | 2018-05-21 17:23 | NUR ---
Case opened to follow for dc planning. Pt is a&ox4 and indicates that he lives alone and independently in an second floor apt. He has an elevator to the second floor and everything in on one level. He is indep in his apt and uses a rwalker or cane when going out. His brother Don lives close by and drives him to appts and the store. He has had [facility] per [facility] in the past and would like to have them again at dc. He feels weak but prefers to dc to home vs snf when medically cleared. Cm role introduced. Therapy recommendations noted and pt would benefit from home f/u. DC plan is home with hh. Will send referral to [facility].
--- NOTE | 2018-05-21 18:22 | NUR ---
PT ASSESSED THIS AM. TEACHING DONE RE PLAN OF CARE W/ SEVERE CONSTIPATION. DR. POPE IN TO SEE PT THIS AM AND UPDATED THIS AFTERNOON W/ STATUS OF BOWEL FUNCTION. PT KEPT ON CLEAR LIQUID DIET. ATTEMPTED DIGITAL DISIMPACTION BUT UNSUCCESSFUL PT NOT ABLE TO PUSH TO RELEASE STOOL IN RECTUM. DID BREAK APART SOME OF THE REACHABLE STOOL. SAT ON THE COMMODE SEVERAL TIMES AND WALKED THE HALLS W/ THERAPY. SMALL AMTS OF FORMED BALLS W/ LIQUID ELIMINATED. WILL GIVE SUPPOSITORY PER DR. POPE ORDER.
[2018-05-21 19:52] VITALS: BP 106/51
--- NOTE | 2018-05-22 04:22 | NUR ---
ASSUMDE PT CARE 190. PT ALERT AND ORIENTED. REASSESSMENT COMPLETE. VSS. PT DENIES N/V, DENIES PAIN AT THIS TIME. IV DRESSING C/D/I, NO SIGNS OF INFILTRATION. DENIED SUPPOSITORY BECAUSE IT WAS "TOO LATE", AGREED TO TAKE IN AM. PT CALL LIGHT AND PERSONAL BELONGINGS WITHIN REACH. WILL CONTINUE POC UNTIL EOS.
[2018-05-22 05:48] VITALS: BP 117/52
[2018-05-22 07:26] VITALS: BP 99/46
[2018-05-22] MEDS ORDERED: MIRALAX17 GM PO (08:50)
--- NOTE | 2018-05-22 10:00 | NUR ---
ASSUMED CARE OF PT AROUND 0715, SPEAKS LITTLE, USES CALL LIGHT FOR NEEDS, CALLED TO SAY HE NEEDED TO URINATE AND HAD ALREADY SOAKED THE BED. GAVE HIM TYLENOL FOR GENERALIZED OVERALL PAIN D/T AGE. HAD ANOTHER LIGHT BROWN BM, SOFT, HAD SOME STUCK TO SCROTUM, CLEANED UP. HAD A HEALTHY APPETITE AFTER DIET WAS CHANGED, TOLERATED WELL THUS FAR. D/C IMMENINENT LET HIM KNOW IT'D BE SOON I COULD AND I'D LET HIM KNOW BEFOREHAND SO HE COULD CALL HIS RIDE. IV WAS LEAKING, R/M'D AND HELD COMPRESSION. ENCOURAGED HIM TO USE CALL LIGHT FOR ANY NEEDS IN THE INTERIM
[2018-05-22 11:47] VITALS: BP 99/46
--- NOTE | 2018-05-22 13:13 | NUR ---
Pt's pcp is Dr. lili Kasper at the [facility]. Dc home today. [facility] not accept. Will check with other [facility] providers to see who can accept. Pt's brother to take him home this afternoon.
--- NOTE | 2018-05-22 13:33 | NUR ---
FAXED REFERRAL TO [facility] SPOKE WITH YONI IN ADM. SHE RECEIVED REFERRAL AND WILL REVIEW. NOTIFIED YONI THAT PT'S PCP IS DR. BOGDAN FERNANDEZ AT THE [facility]. DCP TO FOLLOW.
[2018-05-22 13:57] VITALS: BP 99/46
[2018-05-22 14:53] VITALS: BP 99/46
== END 2018-05-22 17:11 | disposition home health service (06) | DRG 390 ==
LOC: ER 16:36 → EROBS 20:15 → 4E 20:15 → 4W 21:36 → 4E 21:50 → ENTRNSPT 05-22 16:40 → 4E 05-22 17:11
PROVIDERS: Physician Assistant; ADMIT Hospitalist
DX: K56.41 Fecal impaction (principal); I10 Essential (primary) hypertension; K21.9 Gastro-esophageal reflux disease without esophagitis; F31.9 Bipolar disorder, unspecified; M47.9 Spondylosis, unspecified; K08.409 Partial loss of teeth, unspecified cause, unspecified class; F17.210 Nicotine dependence, cigarettes, uncomplicated; Z60.2 Problems related to living alone; M62.84 Sarcopenia; Z82.49 Family history of ischemic heart disease and other diseases of the circulatory system; Z79.899 Other long term (current) drug therapy
CPT/HCPCS: 10084

== ENCOUNTER 2018-06-07 13:33 | Inpatient (IN) | payer OTHER ==
[~2018-06-07] VITALS: Ht 177.8 cm; Wt 161.0 kg
[2018-06-07 13:34] VITALS: BP 123/64
[2018-06-07 16:00] LABS: HEMATOCRIT 43.5 % (42.0-52.0); HEMOGLOBIN 14.8 gm/dL (14.0-18.0); MCH 33.6 pg (26.0-34.0); MCHC 33.9 g/dL (28.0-37.0); PLATELET COUNT 107 thou/uL (150-400); RDW 14.4 % (10.5-14.5); WBC 8.4 thou/uL (4.0-11.0)
[2018-06-07 16:13] VITALS: BP 104/59
[2018-06-07 16:16] LABS: CALCIUM 9.6 mg/dL (8.5-10.1); CREATININE 0.9 mg/dL (0.7-1.3); POTASSIUM 3.9 mmol/L (3.5-5.1)
[2018-06-07 16:35] LABS: ABSOLUTE NEUTROPHILS 6.5 thou/uL (1.4-8.2)
[2018-06-07 16:49] LABS: PROTIME 10.9 Seconds (9.3-11.4)
[2018-06-07 17:20] VITALS: BP 123/58
--- NOTE | 2018-06-07 18:28 | NUR ---
[age] YEAR OLD MALE ADMITTED TO WEST ROOM 457 UNDER THE CARE OF DR. WALKER. PT WAS BROUGHT INTO THE ER TODAY PER EMS, AFTER HAVING A FALL AT HOME C/O RIGHT HIP PAIN. PT ALERT AND ORIENTED TIMES FOUR. VSS, 100%RA. IVF INFUSING PER ORDER. PT C/O RIGHT HIP PAIN PRN MEDICATIONS GIVEN WITH GOOD RELEIF. PT TOLERATES MEDS AND MEALS. PT WILL BE NPO AFTER MIDNIGHT FOR SURGERY IN THE MORNING TO FIX FRACTURE TO RIGHT HIP.
--- NOTE | 2018-06-07 18:40 | NUR ---
ORDERS FOR PT EVAL AND TREAT RECEIVED. Pt SUSTAINED R INTRATROCHANTERIC FX AND NONDISPLACED LESSER TROCHANTER FX AFTER A FALL AT HOME. PER CHART, PLAN FOR SURGICAL INTERVENTION TOMORROW MORNING. WILL PLACE Pt ON HOLD FOR PT UNTIL SURGICAL INTERVENTION COMPLETE. WILL NEED UPDATED WB AND ACTIVITY ORDERS S/P SURGERY PRIOR TO INTIIATING PT.
[2018-06-07 19:55] VITALS: BP 113/64
[2018-06-08] VITALS (9 sets, daily range): BP systolic 110–129; BP diastolic 55–64
[2018-06-08 04:26] LABS: HEMATOCRIT 33.3 % (42.0-52.0); MCH 33.8 pg (26.0-34.0); MCHC 33.5 g/dL (28.0-37.0); MCV 101.1 fL (80.0-100.0); RBC 3.29 mil/uL (4.50-6.00); RDW 14.4 % (10.5-14.5); WBC 5.7 thou/uL (4.0-11.0)
[2018-06-08 04:38] LABS: HEMOGLOBIN 11.1 gm/dL (14.0-18.0)
[2018-06-08 04:43] LABS: CALCIUM 7.7 mg/dL (8.5-10.1); CREATININE 0.8 mg/dL (0.7-1.3); POTASSIUM 3.6 mmol/L (3.5-5.1)
--- NOTE | 2018-06-08 05:18 | NUR ---
PT NPO SINCE MIDNIGHT PT SLEPT MOST OF THE NIGHT PT USED CALL LIGHT EFFECTIVELY NO ISSUES OVERNIGHT.
--- NOTE | 2018-06-08 06:02 | NUR ---
PT REFUSED CT ABDOMINAL.
--- NOTE | 2018-06-08 13:32 | EKG ---
[address] [place] [employer] [address] ELECTROCARDIOGRAM REPORT Name: MEGHA WATTS Room #: 457-P ADM IN M.R.#: [id number] ������������������ Admission: 06/07/18 ������������������ Attend Phys: Alyson Lubin MD Discharge: ������������������ Date of : 43 Report #: [id number] ����������������������������������������������������������������� [id number] THIS REPORT FOR: //name// [facility] ED Test Date: 2018-06-07 Test Time: 15:33:28 Pat Name: MEGHA WATTS Department: Room: [facility] Gender: M Domestic Violence Counselor: KKODJOVI : 1945 Requested By: Tasha Hernandez Order Number: [id number] MD: Prakash Montes Measurements Intervals [place] Rate: 59 P: 42 [place]: 208 QRS: 9 QRSD: 95 T: 42 QT: 414 QTc: 411 Interpretive Statements Sinus rhythm Low voltage, extremity leads Compared to ECG 05/20/2018 17:21:11 No significant changes Electronically Signed On 06-08-2018 13:32:36 CDT by Prakash Montes [email or web address] ��������������������������������������������� <ELECTRONICALLY SIGNED> ���������������������������������������� By: Prakash Montes MD, [facility] ��������������������������������������������� 06/08/18 1332 D: 04/1532 32 Prakash Montes MD, FACC /EPI
--- NOTE | 2018-06-08 19:41 | NUR ---
Received awake on bed. Alert and oriented x 4. Breathing on room air. With Iv at Right forearm. For surgery of R hip today at 9am-consent signed. Pt. refused CT abdomen and blakely as handed over by night staff. Patient tolerated clear liquid then progressed to hearty diet- no nausea and vomiting. Pain medications given as prescribed; patient's pain 9-10. Patient's post op site dry and intact, with ice packs- Weight bearing as tolerated. With SL at L hand. Able to pass urine without difficulty post op.
[2018-06-09 04:05] VITALS: BP 98/60
[2018-06-09 05:01] LABS: HEMATOCRIT 33.7 % (42.0-52.0); HEMOGLOBIN 11.6 gm/dL (14.0-18.0); MCH 33.9 pg (26.0-34.0); MCHC 34.3 g/dL (28.0-37.0); MCV 98.8 fL (80.0-100.0); RBC 3.42 mil/uL (4.50-6.00); RDW 14.5 % (10.5-14.5); WBC 6.2 thou/uL (4.0-11.0)
[2018-06-09 05:19] LABS: CREATININE 0.7 mg/dL (0.7-1.3); POTASSIUM 4.4 mmol/L (3.5-5.1)
[2018-06-09 05:27] LABS: CALCIUM 8.2 mg/dL (8.5-10.1)
[2018-06-09 09:52] VITALS: BP 114/80
[2018-06-09 14:12] VITALS: BP 126/74
--- NOTE | 2018-06-09 16:31 | NUR ---
INITIAL ASSESSMENT: Pt evaluated for d/c planning needs. Reviewed chart and spoke with nurse and pt. Pt is alert and oriented. Pt lives alone in apartment and was recently hospitalized at [facility]. Apartment is on second floor, but there is elevator access. Pt returned home with [facility]. Pt has walker and cane at home. Pt said he has been to skilled in the past. Pt was given list of senior care facilities in network with his insurance. Will check back with pt re: choice. Pt said he has been to SNF in the past.
--- NOTE | 2018-06-09 17:39 | NUR ---
Received awake on bed. Breathing on room air. Patient's incision site checked- dry and intact. With SL at R forearm, with IV D5NS at 75cc/hr at left hand. Patient seen by Dr Lewis- for OT/PT today, to increase activity. Seen by PT, able to sit out on chair on full assist. Patient complained difficulty passing urine, bladder scan done 260mls, able to pass urine 350mls thru urinal. Complained of pain, 9-10; due medications given as prescribed, re-assessed accordingly. Seen by [facility], leaflets given for facilities.
[2018-06-09 18:44] VITALS: BP 126/74
[2018-06-09 19:25] VITALS: BP 105/59
[2018-06-09 20:04] VITALS: BP 105/59
--- NOTE | 2018-06-10 02:12 | NUR ---
PATIENT AOX3 FORGETFUL AND CONFUSED AT TIMES. PATIENT INCONTINENT AT TIMES PERICARE AND BARRIER CREAM APPLIED NEEDED. PATIENT DRESSING ON RIGHT HIP IS C/D/I. PATIENT TURNED Q 2 HOURS. PAIN CONTROLLED THIS SHIFT. FALL PRECAUTION IN PLACE. PATIENT IN BED ASLEEP AT THIS TIME BREATHING REGULAR AND UNLABOURED.
[2018-06-10 03:12] VITALS: BP 118/68
[2018-06-10 05:09] LABS: HEMATOCRIT 30.4 % (42.0-52.0); HEMOGLOBIN 10.5 gm/dL (14.0-18.0); MCH 34.1 pg (26.0-34.0); MCHC 34.5 g/dL (28.0-37.0); MCV 98.8 fL (80.0-100.0); RBC 3.07 mil/uL (4.50-6.00); RDW 14.2 % (10.5-14.5); WBC 6.3 thou/uL (4.0-11.0)
[2018-06-10 07:08] VITALS: BP 136/72
--- NOTE | 2018-06-10 11:10 | NUR ---
AAOX2 NAME AND PLACE REORIENTED TO DATE AND TIME. PLESANT. GOOD APPETITE FOR BREAKFAST. PAIN MED GIVEN PRIOR TO PHYSICAL THERAPY. REPORT GIVENT TO SENIOR SUITES.
--- NOTE | 2018-06-10 11:57 | NUR ---
PT IS A&0X4 W/REPORTS OF CONFUSION/FORGETFULNESS. RIGHT BEFORE HE CAME DOWN HERE NURSE REPORTED A BM IN THE BED. CAME DOWN W/O URINAL, NO URINALS ON THE FLOOR, HE URINATED ALL OVER THE BED AND LINENS. CHANGED. ENCOURAGED HIM THAT WE WOULD KEEP HIS PAIN UNDER CONTROL. HE DID RETURN DEMO ON THE CALL LIGHT, BROUGHT IN BED BURCH AND GOT NEW URINAL FROM CS. ENCOURAGED HIM TO USE CALL LIGHT FOR ANY NEEDS
[2018-06-10 12:11] VITALS: BP 116/59
[2018-06-10] MEDS ORDERED: ENOXAPARIN40 MG/0.1 SUBQ (13:06)
[2018-06-10] MEDS ORDERED: HYDROCODON-ACE1 EAC7 PO (13:06)
[2018-06-10] MEDS ORDERED: ACETAMINOPHEN325 M1 PO (13:06)
--- NOTE | 2018-06-10 15:14 | NUR ---
DISCHARGE PLANNING. POST ACUTE CARE RECOMMENDED AT DISCHARGE. PATIENT REQUESTS REFERRAL FAXED TO [facility] FOR POST ACUTE NEEDS. CALL PLACED TO [facility] TO NOTIFY OF PATIENT REFERRAL AND DISCHARGE NEEDS. SARA TO REVIEW AND NOTIFY CM ONCE COMPLETE. FOLLOWING.
--- NOTE | 2018-06-10 15:17 | NUR ---
CM FOLLOWED UP [facility] PT AND HE ASKED THAT REFERRAL BE SENT TO [facility] FOR REVIEW FOR POSSIBLE ADMISSION. CM TO FOLLOW INDICATED WITH DC PLANNING.
[2018-06-10 17:28] VITALS: BP 111/70
[2018-06-10 23:30] VITALS: BP 111/70
[2018-06-11 07:44] VITALS: BP 97/63
--- NOTE | 2018-06-11 10:42 | NUR ---
ASSUMED CARE OF PATIENT THIS MORNING. PATIENT IS A&OX3. HE IS UP WITH MAX ASSIST, WEIGHT BEARING TOLERATED ON THE RIGHT AND TOTAL WEIGHT BEARING ON THE LEFT. PATIENT CALLS OUT APPROPRIATELY FOR ASSISTANCE. FALL PRECAUTIONS ARE IN PLACE. PATIENT RATED PAIN 8/10 TODAY AND WAS GIVEN TWO HYDROCODONE AND RATED PAIN 7/10 AFTER BEING REASSESSED. LAST BOWEL MOVEMENT WAS THIS MORNING. PATIENT IS SUPPOSE TO BE DISCHARGED BACK TO HIS SNF LATER ON TODAY. HE IS CURRENTLY SITTING IN THE RECLINER WITH THE CALL LIGHT WITHIN REACH.
--- NOTE | 2018-06-11 12:16 | O ---
[facility] [place] [address] OPERATIVE REPORT Name: MEGHA WATTS Room #: 220-P [facility] IN M.R.#: [id number] Admission: 06/07/18 ������������������ Attend Phys: Alyson Lubin MD Discharge: ������������������ Date of : 43 Report #: [id number] THIS REPORT FOR: //name// CC: [facility] physician/PCP Alyson Lubin DATE OF SERVICE: 06/08/2018 PREOPERATIVE DIAGNOSIS: Right intertrochanteric hip fracture. POSTOPERATIVE DIAGNOSIS: Right intertrochanteric hip fracture. PROCEDURE: Treatment of right intertrochanteric hip fracture with IM nail. SURGEON: Zhen Mario MD. GYROSCOPIC INSTRUMENT TESTER: Nadira Lewis PA-C. ANESTHESIA: LMA. IMPLANTS: [employer]hew size 10 short InterTan nail with size 90/85 lag screw and compression screw and a size 32.5 distal locking screw. ESTIMATED BLOOD LOSS: 50 mL. COMPLICATIONS: None. SPECIMENS: None. CONDITION UPON LEAVING THE OPERATING ROOM: Stable. INDICATIONS FOR PROCEDURE: The patient is a 72-year-old gentleman who fell at home and sustained a right nondisplaced intertrochanteric hip fracture. After discussion with him, he elected for treatment with IM nail. DESCRIPTION OF PROCEDURE: Risks, benefits, alternatives, complications were discussed in detail with the patient including but not limited to risk of anesthesia; risk of damage to nerves, arteries, blood vessels; risk for infection, bleeding; risk for continued hip pain; malunion; nonunion, need for reoperation. Informed consent was obtained from the patient. Right hip was appropriately marked in the preoperative holding area. IV Ancef was given for preoperative antibiotics. He was brought to the operating room and placed in supine position on the operating room table. LMA anesthesia was induced without complication. Transferred to the [place] fracture table and right lower extremity was placed in slight traction, left lower extremity was scissored. Timeout was performed, properly identifying the patient and procedure as well as [facility] [address] [address] OPERATIVE REPORT Name: STEFANIEMEGHA EVELINE Room #: 220-P [facility] IN M.R.#: [id number] Admission: 06/07/18 ������������������ Attend Phys: Alyson Lubin MD Discharge: ������������������ Date of : 43 Report #: [id number] instrumentation. All in the operating room were in agreement. Fluoroscopic imaging was brought in to verify adequate images could be obtained, as was the case. Right hip was then prepped and draped in normal sterile fashion. A 2-inch incision proximal to the tip of greater trochanter was made with 10 blade through the skin and fascia. Threaded tip guidewire was placed on the tip of the greater trochanter and taken down the level of the lesser trochanter under AP and lateral images to verify adequate starting portal position. An entry portal reamer was used to ream the entry portal and a size 10 short InterTan nail was placed down and seated. The guide for the lag and compression screws was then placed, threaded tip guidewire was taken up into the femoral head and determined to be in a center-center position under AP and lateral imaging. This was measured and found to be a size 90. The path for the lag screw and compression screw were then drilled per the technique guide, and a size 90 lag screw was placed, 85 compression screw was then placed. The nail was then locked from above to limit sliding. One distal locking screw was then placed in the dynamic slot, this was 32.5 mm in length. After this, final fluoroscopic images were taken to verify adequate fracture reduction and placement of hardware, as was the case. Wounds were thoroughly irrigated with normal saline and closed with 2-0 Vicryl, skin tara. Soft dressing was applied. The patient tolerated this procedure well and went to recovery room under care of anesthesia postoperatively. ��������������������������������������������� <ELECTRONICALLY SIGNED> ���������������������������������������� By: Zhen Mario MD ��������������������������������������������� 06/11/18 1216 1047 1215 Zhen Mario MD /nt
--- NOTE | 2018-06-11 12:16 | HC ---
[facility] [address] [address] CONSULTATION Name: MEGHA WATTS Room #: 220-P [facility] IN M.R.#: [id number] Admission: 06/07/18 ������������������ Attend Phys: Alyson Lubin MD Discharge: ������������������ Date of : 43 Report #: [id number] THIS REPORT FOR: //name// CC: [facility] physician/PCP Alyson Lubin DATE OF SERVICE: 06/07/2018 REASON FOR CONSULTATION: Right hip fracture. HISTORY OF PRESENT ILLNESS: The patient is a 72-year-old gentleman who fell at home. He was brought to the Emergency Room and found to have a right intertrochanteric hip fracture. 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 SOCIAL HISTORY: Lives at home alone. He smokes half pack of cigarettes per day. MEDICATIONS: Have been reviewed and is on the chart. ALLERGIES: Have been reviewed and is on the chart. PHYSICAL EXAMINATION: GENERAL: This is a well-developed, well-nourished male in no acute distress. He is alert and oriented x 3, pleasant, cooperative with exam. EXTREMITIES: Examination of the right lower extremity shows he has mild pain in the right hip. He is neurologically intact. Distally his skin is intact with 3+ dorsalis pedis pulse. X-RAY EXAMINATION: AP pelvis and AP and lateral right hip shows him to have a minimally displaced right intertrochanteric hip fracture. ASSESSMENT: Right intertrochanteric hip fracture. PLAN: Discussed with him treatment options. We will plan for treatment with an IM nail. I have him scheduled for surgery tomorrow morning. Risks, benefits, alternatives, complications were discussed with him, he is understanding and wished to proceed. [facility] [address] [place] [address] CONSULTATION Name: WATTSMEGHA Room #: 220-P [facility] IN M.R.#: [id number] Admission: 06/07/18 ������������������ Attend Phys: Alyson Lubin MD Discharge: ������������������ Date of : 43 Report #: [id number] Thank you for allowing us to participate in the care of the patient. ��������������������������������������������� <ELECTRONICALLY SIGNED> ���������������������������������������� By: Zhen Mario MD ��������������������������������������������� 06/11/18 1216 2201 12 Zhen Mario MD /nt
--- NOTE | 2018-06-11 15:02 | NUR ---
DC ENGINE MANAGER NOTIFIED CM THAT [facility] IS ABLE TO ACCEPT PT AND THAT THEY HAVE SUBMITTED FOR AUTH. CM TO FOLLOW INDICATED WITH DC PLANNING.
--- NOTE | 2018-06-11 19:34 | NUR ---
I AGREE WITH NURSING ASSESSMENT DONE BY CJ/SHAREE, AND NURSING NOTE.
[2018-06-11 19:51] VITALS: BP 112/60
--- NOTE | 2018-06-12 05:32 | NUR ---
PATIENT ALERT AND ORIENTED X3, PERSON, PLACE AND SITUATION. IV FLUIDS RUNNING. RED CLIFF. DRESSING ON R HIP CHANGED D/T BEING WET. NO DRAONAGE NOTED. C/O PAIN X1. MED GIVEN. SLEPT MOST OF NIGHT.
[2018-06-12 08:11] VITALS: BP 118/67
--- NOTE | 2018-06-12 10:07 | NUR ---
SW reviewed chart and spoke with nursing and attending physician. Pt is medically stable for discharge to post-acute. Awaiting insurance authorization at this time for pt to discharge to [facility]. SW requested therapy to see pt early today, in order to submit updated info to insurance. Chart copy ordered. [facility] is following to assist as needed with discharge planning.
--- NOTE | 2018-06-12 12:13 | NUR ---
ASSUMED CARE OF PATIENT THIS MORNING. PATIENT IS A&OX3. PATIENT GETS UP W/MAX ASSIST TO THE CHAIR OR BEDSIDE COMMODE. HE IS INCONTINENT AT TIMES, TRIES TO VOID PER URINAL. PATIENT HAS A HARD TIME AT AMBULATING AND NEEDS REINFORCING ON HOW TO STAND AND PIVOT. HE WILL BE DISCHARGED LATER ON TODAY TO SNF. HIS IV'S WILL BE REMOVED AND REPORT WILL BE CALLED TO FACILITY. PATIENT IS CURRENTLY LYING IN BED WITH CALL LIGHT WITHIN REACH. HE CALLS OUT APPROPRIATELY FOR ASSISTANC. FALL PREACAUTIONS ARE IN PLACE.
[2018-06-12 18:26] VITALS: BP 127/67
--- NOTE | 2018-06-13 04:07 | NUR ---
Assumed pt.care at 1999. Remains A&Ox3; Swalllows meds whole w/o difficulty. Remains cont. B&B; utilizes the urinal for toileting. Remains s/p R hip surgery; DRSG to site remains C/D/I, at this time. Needs asst x1 for repositioning.RFA SL noted/flushed w/ NS w/o difficulty; no blood return noted. Redness noted to RUE. Skin tear noted to R buttock. Last BM 06/12/18; Pt refused Miralax d/t the passing of several soft stools. Pt. has no c/o pain or discomfort. No s/s of acute distress noted. Pt/ asleep in bed w/ call light/desied belonings within reach. PO fluids encouraged. Will continue to monitor.
[2018-06-13 08:00] VITALS: BP 130/75
--- NOTE | 2018-06-13 08:18 | NUR ---
ASSUMED PATIENT AND CARES AT 0715, PATIENT INITIALLY SLEEP IN BED, PATIENT EASILY AROUSED, A&OX4, PAIN 08/20 TO RIGHT HIP AND RIGHT ANKLE, RECEIVED PAIN MEDICATION AT 0630 PRIOR TO SHIFT CHANGE, PAIN AT THAT TIME 09/20, RIGHT FOREARM IV INTACT AND NOT PATENT PER FLUSH, NURSE REMOVED IV AND PLACED GAUZE AND TAPE DUE TO PATIENT SCHEDULED OPERATIONS PLANNER AT 0900 FOR DISCHARGE, RIGHT FOREARM NOTED WITH LARGE AND SMALL RED BRUISE LIKE AREAS, EDEMA NOTED TO INSIDE OF RIGHT FOREARM, DENIES PAIN OR DISCOMFORT TO THAT AREA, PATIENT WEARS GLASSES, BED LINEN AND GOWN CHANGE DUE TO INCONTINENT EPISODE PRIOR TO SHIFT CHANGE, VITALS AND ASSESSMENT COMPLETE, PATIENT STATES HE IS UNABLE TO SIT UP OR OPEN PACKAGES ON BREAKFAST TRAY, NURSE NOTED PATIENT OPEN BUTTER AND JELLY PACKAGE, FALL PRECAUTIONS IN PLACE, PERSONAL BELONGINGS AND CALL LIGHT IN REACH, WILL CONTINUE TO MONITOR
--- NOTE | 2018-06-13 10:47 | NUR ---
DISCHARGE NOTE: SW reviewed chart. Pt was picked up by [facility] this morning around 0900 per facility's arrangements. No additional SW needs identified at this time, but is available to assist should needs arise.
--- NOTE | 2018-06-13 10:52 | NUR ---
PATIENT DISCHARGED TO [facility], REPORT CALLED TO RECEIVING NURSE, RIGHT FOREARM SALINE LOCK REMOVED DURING ASSESSMENT AT 0800, DRSG TO RIGHT HIP C/D/I, PERSONAL BELONGINGS INCLUDING BELONGINGS LOCKED UP WITH SECURITY PACKED AND SENT WITH PATIENT, [facility]ELCHA[facility] VAN ARRIVED AT 0900, CHART COPY SENT WITH PATIENT, PATIENT TAKEN OUT OF HOSPITAL AT 0930
== END 2018-06-13 09:30 | DRG 481 ==
LOC: ER 13:33 → EROBS 15:32 → SICU 15:32 → 4W 15:32 → SICU 06-10 11:35
PROVIDERS: Hospitalist; Nurse Practitioner Family; Orthopaedic Surgery; ADMIT Internal Medicine
PROC: 0QS606Z Reposition Right Upper Femur with Intramedullary Internal Fixation Device, Open Approach (ICD-10-PCS; principal; 2018-06-08)
DX: S72.141A Displaced intertrochanteric fracture of right femur, initial encounter for closed fracture (principal); D62 Acute posthemorrhagic anemia; D69.6 Thrombocytopenia, unspecified; I10 Essential (primary) hypertension; F31.9 Bipolar disorder, unspecified; K21.9 Gastro-esophageal reflux disease without esophagitis; M46.90 Unspecified inflammatory spondylopathy, site unspecified; K08.409 Partial loss of teeth, unspecified cause, unspecified class; F17.210 Nicotine dependence, cigarettes, uncomplicated; K59.00 Constipation, unspecified; W18.39XA Other fall on same level, initial encounter; Y93.89 Activity, other specified; Y92.89 Other specified places as the place of occurrence of the external cause; Y99.8 Other external cause status; Z79.899 Other long term (current) drug therapy
CPT/HCPCS: 10040; 10045; 15002; 50010; 50101; 50386; 51412; 51538; 52304; 55445; 56524; 57092; 62110; 62900; 70005

== ENCOUNTER 2018-07-08 20:05 | Emergency (ER) | payer OTHER ==
[~2018-07-08] VITALS: Ht 177.8 cm; Wt 69.0 kg
[~2018-07-08 20:05] MED LIST changes: +ACETAMINOPHEN325 M1 PO; +ENOXAPARIN40 MG/0.1 SUBQ
[2018-07-08] MEDS ORDERED: SENNA-DOCUSATE1 EAC1 PO (22:38)
[2018-07-08] MEDS ORDERED: NORCO 5-325 TA1 EACH PO (22:38)
[2018-07-08 22:47] VITALS: BP 145/68
== END 2018-07-08 22:58 | disposition home or self-care (01) ==
LOC: ER 20:05
DX: M25.551 Pain in right hip (principal); G89.29 Other chronic pain; F17.210 Nicotine dependence, cigarettes, uncomplicated; I10 Essential (primary) hypertension; F31.9 Bipolar disorder, unspecified; K64.9 Unspecified hemorrhoids; Z96.641 Presence of right artificial hip joint